=== PATIENT | female | born 1980 | race Caucasian/White ===

== ENCOUNTER 2016-07-22 21:10 | Inpatient (IN) | payer MEDICAID ==
[~2016-07-22] VITALS: Ht 175.3 cm; Wt 83.0 kg
[2016-07-22 21:12] VITALS: BP 153/94; PULSE 103; RESP 20; TEMP 100.3; O2SAT 98
[2016-07-22] MEDS ORDERED: VANCOMYCIN INJ 1,000 MG in SODIUM CHLOR 0.9% 250 ML INJ 250 ML IV STA (22:06)
[2016-07-22] MEDS ORDERED: PIPERACIL-TAZO 4.5 GM PREMIX 100 ML IV STA (22:06)
--- NOTE | 2016-07-22 22:12 | PD ---
HPI Chief Complaint: Skin Problem Time Seen by Provider: 22:06 Travel History International Travel<30 days: No Contact w/Intl Traveler<30days: No Traveled to known affect area: No History of Present Illness HPI 36-year-old female with IV drug use history, presents to the ER today because she states that she had injected heroin and cocaine 2 days ago and had missed, is here because of right arm pain, redness, swelling. She denies any fevers or any other issues. Modifying Factors: None Associated Signs & Symptoms: Right arm pain, swelling, redness Risk Factors: IV drug use PFSH Past Medical History Arthritis: Yes Asthma: No Autoimmune Disease: No Blood Disorders: No Anxiety: Yes Depression: Yes Heart Rhythm Problems: No Cancer: No Cardiovascular Problems: Yes (gestational) High Cholesterol: No Chemotherapy: No Chest Pain: No Congestive Heart Failure: No COPD: Yes (PT NOT SURE) Cerebrovascular Accident: No Diabetes: No Diminished Hearing: No Endocrine: No Gastrointestinal Disorders: Yes Genitourinary: Yes Hypertension: Yes (gestational) Immune Disorder: No Implanted Vascular Access Dvce: No Kidney Stones: Yes (2005) Musculoskeletal: No Neurologic: Yes Psychiatric: Yes (depression, anxiety) Reproductive: No Respiratory: No Immunizations Current: Yes Migraines: Yes Radiation Therapy: No Seizures: No Sleep Apnea: No Thyroid Disease: No ?: Not LMP: 06/29/16 : 5 Para: 5 Miscarriage: 0 : 0 Past Surgical History Abdominal Surgery: No AICD: No Arteriovenous Shunt: No Cardiac Surgery: No Ear Surgery: No Endocrine Surgery: No Eye Surgery: No Genitourinary Surgery: Yes (LITHOTRIPSY) Gynecologic Surgery: Yes (HEMORRAGED AFTER THE 5TH CHILD) Insulin Pump: No Joint Replacement: No Neurologic Surgery: No Oral Surgery: No Pacemaker: No Thoracic Surgery: No Other Surgery: Yes (lithotripsy, LEFT KIDNEY STENT) Social History Alcohol Use: No Tobacco Use: No Substance Use: Yes (DILAUDID, COCAINE, HEROIN, SUBUTEX) Allergies-Medications (Allergen,Severity, Reaction): Coded Allergies: *MDRO Multi-Drug Resistant Organism (Verified Adverse Reaction, Unknown, ) MRSA (finger-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 SKIN: Warm and dry. HEAD: Normocephalic. EYES: No scleral icterus. No injection or drainage. NECK: Supple, trachea midline. CARDIOVASCULAR: Regular rate and rhythm without murmurs, gallops, or rubs. RESPIRATORY: Breath sounds equal bilaterally. No accessory muscle use. GASTROINTESTINAL: Abdomen soft, non-tender, nondistended. MUSCULOSKELETAL: No cyanosis, or edema. BACK: Nontender without obvious deformity. No CVA tenderness. Right arm: There is notable erythema, induration, and tenderness to palpation of the medial right arm at the elbow and antecubital region. She is unable to extend elbow secondary to pain. Data Data Last Documented VS Vital Signs Date Time Temp Pulse Resp B/P Pulse Ox O2 Delivery O2 Flow Rate FiO2 07/22/16 23:03 99.8 103 22 139/73 99 Room Air Orders Complete Blood Count With Diff (07/22/16 22:06) Comprehensive Metabolic Panel (07/22/16 22:06) Lactic Acid Sepsis Protocol (07/22/16 22:06) Urinalysis - C+S If Indicated (07/22/16 22:06) Blood Culture (07/22/16 22:06) Blood Glucose (07/22/16 22:06) Ecg Monitoring (07/22/16 22:06) Iv Access Insert/Monitor (07/22/16 22:06) Oximetry (07/22/16 22:06) Oxygen Administration (07/22/16 22:06) Piperacil-Tazo 4.5 Gm Premix (Zosyn 4.5 (07/22/16 22:06) Vancomycin Inj (Vancomycin Inj) (07/22/16 22:06) Us Arm Soft Tissue (07/22/16 ) Hydromorphone Pf Inj (Dilaudid Pf Inj) (07/22/16 23:30) Ondansetron Inj (Zofran Inj) (07/22/16 23:30) Urine Culture (07/22/16 22:30) Admit Order (Ed Use Only) (07/23/16 00:09) Labs Laboratory Tests Test 07/22/16 07/22/16 07/22/16 22:30 22:35 22:50 Urine Color YELLOW Urine Turbidity HAZY Urine pH 7.5 Urine Specific [place] 1.024 Urine Protein TRACE mg/dL Urine Glucose (UA) NEG mg/dL Urine Ketones NEG mg/dL Urine Occult Blood TRACE Urine Nitrite NEG Urine Bilirubin NEG Urine Urobilinogen 2.0 MG/DL Urine Leukocyte Esterase TRACE Urine RBC 12 /hpf Urine WBC 2 /hpf Urine Squamous Epithelial 28 /hpf Cells Urine Calcium Oxalate Crystals RARE /hpf Urine Bacteria OCC /hpf Urine Mucus MOD /lpf Microscopic Urinalysis Comment CATH-CULTURE IND White Blood Count 10.7 TH/MM3 Red Blood Count 3.96 MIL/MM3 Hemoglobin 12.0 GM/DL Hematocrit 35.7 % Mean Corpuscular Volume 90.1 FL Mean Corpuscular Hemoglobin 30.2 PG Mean Corpuscular Hemoglobin 33.6 % Concent Red Cell Distribution Width 13.0 % Platelet Count 301 TH/MM3 Mean Platelet Volume 8.9 FL Neutrophils (%) (Auto) 72.4 % Lymphocytes (%) (Auto) 19.9 % Monocytes (%) (Auto) 6.2 % Eosinophils (%) (Auto) 0.8 % Basophils (%) (Auto) 0.7 % Neutrophils # (Auto) 7.7 TH/MM3 Lymphocytes # (Auto) 2.1 TH/MM3 Monocytes # (Auto) 0.7 TH/MM3 Eosinophils # (Auto) 0.1 TH/MM3 Basophils # (Auto) 0.1 TH/MM3 CBC Comment DIFF FINAL Differential Comment Sodium Level 142 MEQ/L Potassium Level 3.9 MEQ/L Chloride Level 108 MEQ/L Carbon Dioxide Level 28.3 MEQ/L Anion Gap 6 MEQ/L Blood Urea Nitrogen 7 MG/DL Creatinine 0.98 MG/DL Estimat Glomerular Filtration 64 ML/MIN Rate Random Glucose 115 MG/DL Calcium Level 8.4 MG/DL Total Bilirubin 0.2 MG/DL Aspartate Amino Transf 11 U/L (AST/SGOT) Alanine Aminotransferase 16 U/L (ALT/SGPT) Alkaline Phosphatase 68 U/L Total Protein 7.2 GM/DL Albumin 3.3 GM/DL Lactic Acid Level 1.3 mmol/L MDM Medical Decision Making Medical Screen Exam Complete: Yes Emergency Medical Condition: Yes Medical Record Reviewed: Yes Interpretation(s) Laboratory Tests Test 07/22/16 07/22/16 22:30 22:35 Urine Turbidity HAZY (CLEAR) Urine Occult Blood TRACE (NEG) Urine Leukocyte Esterase TRACE (NEG) Urine RBC 12 /hpf (0-3) Urine Calcium Oxalate Crystals RARE /hpf (NONE) Urine Bacteria OCC /hpf (NONE) Urine Mucus MOD /lpf (OCC) Red Blood Count 3.96 MIL/MM3 (4.00-5.30) Neutrophils (%) (Auto) 72.4 % (16.0-70.0) Chloride Level 108 MEQ/L (98-107) Estimat Glomerular Filtration 64 ML/MIN (>89) Rate Random Glucose 115 MG/DL (74-106) Calcium Level 8.4 MG/DL (8.5-10.1) Aspartate Amino Transf 11 U/L (15-37) (AST/SGOT) Albumin 3.3 GM/DL (3.4-5.0) Last 24 hours Impressions Upper Extremity Ultrasound 07/22/16 0000 Signed Impressions: Service Date/Time: Friday, July 22, 2016 23:08 - CONCLUSION: Phlegmonous changes, likely developing abscess process in the right arm as described Lalo Nina MD Differential Diagnosis Right arm cellulitis/rule out ABSCESS Narrative Course Sepsis protocol initiated, IV antibiotics initiated after blood cultures done. Ultrasound shows underlying abscess. Abscess was drained by my PA without issues. Case was then discussed with PA for [place] hospitalists for admission for IV antibiotics. Diagnosis Primary Impression: Cellulitis Additional Impression: Abscess Admitting Information Admitting Physician Requests: Admit Scripts No Active Prescriptions or Reported Meds Tayo Wyatt MD Jul 22, 2016 22:12
[2016-07-22 22:37] VITALS: RESP 20; O2SAT 100
[2016-07-22 23:03] VITALS: BP 139/73; PULSE 103; RESP 22; TEMP 99.8; O2SAT 99
[2016-07-22 23:22] LABS: AUTOMATED NEUTROPHIL # 7.7 TH/MM3 (1.8-7.7); BASOPHIL # 0.1 TH/MM3 (0-0.2); BASOPHIL % 0.7 % (0.0-2.0); EOSINOPHIL # 0.1 TH/MM3 (0-0.4); EOSINOPHIL % 0.8 % (0.0-4.0); HEMATOCRIT 35.7 % (35.0-46.0); HEMO FLAGS DIFF FINAL; LYMPH % 19.9 % (9.0-44.0); LYMPHOCYTE # 2.1 TH/MM3 (1.0-4.8); MEAN CELL VOLUME 90.1 FL (80.0-100.0); MEAN CORPUSCULAR HEMOGLOBIN 30.2 PG (27.0-34.0); MEAN CORPUSCULAR HGB CONC 33.6 % (32.0-36.0); MONO % 6.2 % (0.0-8.0); NEUT % 72.4 % (16.0-70.0); PLATELET COUNT 301 TH/MM3 (150-450); RED BLOOD COUNT 3.96 MIL/MM3 (4.00-5.30); WHITE BLOOD COUNT 10.7 TH/MM3 (4.0-11.0)
[2016-07-22 23:29] LABS: ANION GAP 6 MEQ/L (5-15); AST (GOT) 11 U/L (15-37); BICARBONATE 28.3 MEQ/L (21.0-32.0); BLOOD UREA NITROGEN 7 MG/DL (7-18); CHLORIDE 108 MEQ/L (98-107); GLOMERULAR FILTRATION RATE 64 ML/MIN (>89); POTASSIUM 3.9 MEQ/L (3.5-5.1); SODIUM (NA) 142 MEQ/L (136-145)
[2016-07-22] MEDS ORDERED: HYDROmorphone HCL PF 2 MG/ML VIAL IV PUSH ONE (23:30)
[2016-07-22] MEDS ORDERED: ONDANSETRON HCL 4 MG/2 ML VIAL IV PUSH ONE (23:30)
[2016-07-22 23:32] LABS: ALKALINE PHOSPHATASE 68 U/L (45-117); ALT (GPT) 16 U/L (10-53); TOTAL BILIRUBIN ADULT 0.2 MG/DL (0.2-1.0)
--- NOTE | 2016-07-22 23:35 | RADRPT ---
EXAM DATE/TIME: 07/22/2016 23:08 [facility] COMPARISON: No previous studies available for comparison. INDICATIONS : Right arm pain, redness, and swelling. MEDICAL HISTORY : Methicillin-resistant Staphylococcus aureus. Hypertension. . Head trauma. Syncope. Migraines . Kidney stones. Arthritis. Liver disease. IV substance abuse. Post traumatic stress disorder. Suicid e attempts. SURGICAL HISTORY : Left kidney lithotripsy with stent. Left arm surgery. Partial finger amputation. ENCOUNTER: Initial ACUITY: 1 day PAIN SCORE: 10/10 LOCATION: Right arm. AREA EVALUATED: Right arm AC area and medial distal humerus just prox to elbow. FINDINGS: There is a slightly greater than 3 cm irregularly shaped hypoechoic process in the upper antecubital region of the right arm in the deep subcutaneous tissues with surrounding soft tissue edema. This is felt to potentially reflect a phlegmon or developing abscess. CONCLUSION: Phlegmonous changes, likely developing abscess process in the right arm as described Lalo Nina MD on July 22, 2016 at 23:30 Board Certified Radiologist. This report was verified electronically.
[2016-07-22 23:40] LABS: BACTERIA, URINE OCC /hpf; BLOOD, URINE TRACE (NEG); CALCIUM OXALATE CRYSTALS,URINE RARE /hpf; GLUCOSE,URINE NEG (NEG); KETONE, URINE NEG (NEG); MUCUS URINE MOD /lpf (OCC); NITRITE,URINE NEG (NEG); PH, URINE 7.5 (5.0-8.5); SQUAMOUS EPITHELIAL CELL URINE 28 /hpf (0-5); URINE COLOR YELLOW (YELLW/STRAW)
[2016-07-22 23:41] LABS: COMMENT (UR) CATH-CULTURE IND; CULTURE IF INDICATED CATH CULTURE IND
[2016-07-23] MEDS ORDERED: diphenhydrAMINE HCL 50 MG/ML VIAL IV PUSH ONE (01:00)
[2016-07-23] MEDS ORDERED: ACETAMINOPHEN 325 MG TAB PO ONE (01:00)
--- NOTE | 2016-07-23 01:11 | PD ---
Physical Exam Date Seen by Provider: Jul 23, 2016 Time Seen by Provider: 01:10 Data Data Last Documented VS Vital Signs Date Time Temp Pulse Resp B/P Pulse Ox O2 Delivery O2 Flow Rate FiO2 07/22/16 23:03 99.8 103 22 139/73 99 Room Air Orders Complete Blood Count With Diff (07/22/16 22:06) Comprehensive Metabolic Panel (07/22/16 22:06) Lactic Acid Sepsis Protocol (07/22/16 22:06) Urinalysis - C+S If Indicated (07/22/16 22:06) Blood Culture (07/22/16 22:06) Blood Glucose (07/22/16 22:06) Ecg Monitoring (07/22/16 22:06) Iv Access Insert/Monitor (07/22/16 22:06) Oximetry (07/22/16 22:06) Oxygen Administration (07/22/16 22:06) Piperacil-Tazo 4.5 Gm Premix (Zosyn 4.5 (07/22/16 22:06) Vancomycin Inj (Vancomycin Inj) (07/22/16 22:06) Us Arm Soft Tissue (07/22/16 ) Hydromorphone Pf Inj (Dilaudid Pf Inj) (07/22/16 23:30) Ondansetron Inj (Zofran Inj) (07/22/16 23:30) Urine Culture (07/22/16 22:30) Admit Order (Ed Use Only) (07/23/16 00:09) Labs Laboratory Tests Test 07/22/16 07/22/16 07/22/16 22:30 22:35 22:50 Urine Color YELLOW Urine Turbidity HAZY Urine pH 7.5 Urine Specific [place] 1.024 Urine Protein TRACE mg/dL Urine Glucose (UA) NEG mg/dL Urine Ketones NEG mg/dL Urine Occult Blood TRACE Urine Nitrite NEG Urine Bilirubin NEG Urine Urobilinogen 2.0 MG/DL Urine Leukocyte Esterase TRACE Urine RBC 12 /hpf Urine WBC 2 /hpf Urine Squamous Epithelial 28 /hpf Cells Urine Calcium Oxalate Crystals RARE /hpf Urine Bacteria OCC /hpf Urine Mucus MOD /lpf Microscopic Urinalysis Comment CATH-CULTURE IND White Blood Count 10.7 TH/MM3 Red Blood Count 3.96 MIL/MM3 Hemoglobin 12.0 GM/DL Hematocrit 35.7 % Mean Corpuscular Volume 90.1 FL Mean Corpuscular Hemoglobin 30.2 PG Mean Corpuscular Hemoglobin 33.6 % Concent Red Cell Distribution Width 13.0 % Platelet Count 301 TH/MM3 Mean Platelet Volume 8.9 FL Neutrophils (%) (Auto) 72.4 % Lymphocytes (%) (Auto) 19.9 % Monocytes (%) (Auto) 6.2 % Eosinophils (%) (Auto) 0.8 % Basophils (%) (Auto) 0.7 % Neutrophils # (Auto) 7.7 TH/MM3 Lymphocytes # (Auto) 2.1 TH/MM3 Monocytes # (Auto) 0.7 TH/MM3 Eosinophils # (Auto) 0.1 TH/MM3 Basophils # (Auto) 0.1 TH/MM3 CBC Comment DIFF FINAL Differential Comment Sodium Level 142 MEQ/L Potassium Level 3.9 MEQ/L Chloride Level 108 MEQ/L Carbon Dioxide Level 28.3 MEQ/L Anion Gap 6 MEQ/L Blood Urea Nitrogen 7 MG/DL Creatinine 0.98 MG/DL Estimat Glomerular Filtration 64 ML/MIN Rate Random Glucose 115 MG/DL Calcium Level 8.4 MG/DL Total Bilirubin 0.2 MG/DL Aspartate Amino Transf 11 U/L (AST/SGOT) Alanine Aminotransferase 16 U/L (ALT/SGPT) Alkaline Phosphatase 68 U/L Total Protein 7.2 GM/DL Albumin 3.3 GM/DL Lactic Acid Level 1.3 mmol/L MDM Medical Record Reviewed: Yes Supervised Visit with [place]: Yes Interpretation(s) Ultrasound of the right antecubital fossa reveals a loculated area of abscess with cellulitic component with cobblestoning. Differential Diagnosis MDM: High Differential diagnoses: Abscess, folliculitis, cellulitis, lymphangitis, abrasion, contact dermatitis Narrative Course An incision and drainage has been performed Procedures Procedure Narrative I&D abscess: After the risks and benefits were discussed the following procedure was performed. The skin is prepped and draped in the usual sterile fashion using Betadine. The abscess is anesthetized with 1% lidocaine. After adequate anesthesia, an 11 blade scalpel is used to make a 3 centimeter central incision. Perulant material is expressed and cultured. Loculations are broken up using curved Chelsy forceps. The wound is cleansed deeply using dilute Betadine and peroxide on Q-tips. The wound is packed open using iodoform gauze. A clean dressing is applied. The patient tolerated the procedure well. There was no complications. Follow-up instructions were given to the patient. Diagnosis Primary Impression: Cellulitis Scripts No Active Prescriptions or Reported Meds Karl Zelaya Jul 23, 2016 01:11
[2016-07-23] MEDS ORDERED: SODIUM CHLORIDE 0.9% FLUSH 5 ML FLUSH FLUSH PRN (01:30)
[2016-07-23] MEDS ORDERED: NALOXONE HCL 0.4 MG/ML AMP IV PRN (01:30)
[2016-07-23] MEDS ORDERED: ZOLPIDEM TARTRATE 5 MG TAB PO PRN (01:30)
[2016-07-23] MEDS ORDERED: ACETAMINOPHEN 325 MG TAB PO PRN (01:30)
[2016-07-23] MEDS ORDERED: ONDANSETRON HCL 4 MG/2 ML VIAL IVP PRN (01:30)
[2016-07-23] MEDS ORDERED: SENNOSIDES 8.6 MG TAB PO PRN (01:30)
[2016-07-23 02:00] VITALS: BP 126/62; PULSE 92; RESP 16; TEMP 100.8; O2SAT 99
[2016-07-23] MEDS: SODIUM CHLOR 0.9% 1000 ML INJ 1,000 ML IV SCH ×2 (02:09→18:12)
[2016-07-23] MEDS: LINEZOLID 600 MG PREMIX 300 ML IV SCH ×2 (02:49→14:51)
[2016-07-23 03:02] LABS: BETA HCG QUANT LESS THAN 1 MIU/ML (0-5)
[2016-07-23 03:24] VITALS: BP 126/62; TEMP 100.4
[2016-07-23 03:44] VITALS: BP 108/57; PULSE 97; RESP 20; TEMP 98; O2SAT 97
[2016-07-23] MEDS: oxyCODONE/ACETAMINOPHEN 10 MG/325 MG TAB PO PRN ×2 (03:55→20:32)
[2016-07-23] MEDS: PIPERACIL-TAZO 4.5 GM PREMIX 100 ML IV SCH ×4 (03:55→21:24)
[2016-07-23 08:00] VITALS: BP_SYST 105; BP_SYST 97; BP_DIAS 53; BP_DIAS 67; PULSE 71; PULSE 81; RESP 20; TEMP 96.2; TEMP 97.2; O2SAT 95; O2SAT 97
[2016-07-23] MEDS: KETOROLAC TROMETHAMINE 30 MG/ML (IVP) VIAL IVP PRN ×3 (08:02→19:20)
[2016-07-23] MEDS: HEPARIN SODIUM - SQ 10,000 UNITS/ML VIAL SQ SCH ×2 (08:02→19:21)
[2016-07-23] MEDS: SODIUM CHLORIDE 0.9% FLUSH 5 ML FLUSH FLUSH SCH ×2 (08:03→21:00)
--- NOTE | 2016-07-23 08:25 | HHI.HP ---
HPI Service [facility]ists Primary Care Physician Joshua Robles M.D. Admission Diagnosis left arm cellulitis/abscess Diagnoses: Chief Complaint: RIGHT ARM PAIN (Tita Verma) Travel History International Travel<30 Days: No Contact w/Intl Traveler <30 Da: No Traveled to Known Affected Are: No (Tita Verma) History of Present Illness The patient is a 36 year old female with a history of opioid IVDU, MRSA infection with previous I/D of left AC abscess 2015, bipolar, COPD, anxiety. Most recently she underwent DIP joint amputation for osteomyelitis and MRSA infection. Pt. presented with right antecubital and arm, swelling and redness. States she injected cocaine and heroin 2 days ago. She had subjective fever, chills, no cp, no sob, no cough, no sputum, no urinary symptoms, no diarrhea. Pt. was noted febrile 100.3, tachycardic HR 103, BP 153/94, RR 20. WBC was normal. Lactic acid 1.3. US of left arm showed developing abscess. Last Impressions Upper Extremity Ultrasound 07/22/16 0000 Signed Impressions: Service Date/Time: Friday, July 22, 2016 23:08 - CONCLUSION: Phlegmonous changes, likely developing abscess process in the right arm as described Lalo Nina MD In the ED, she was given IVF, cultures were obtained and antibiotics were initiated. Bedside I/D was done in the ED, cultures were obtained. UA also positive for UTI. Pt. now admitted for further evaluation and treatment. (Tita Verma) Review of Systems Constitutional: COMPLAINS OF: Fever, Chills, DENIES: Diaphoretic episodes, Fatigue, Weight gain, Weight loss, Dizziness, Change in appetite, Night Sweats Endocrine: DENIES: Abnorml menstrual pattern, Heat/cold intolerance, Polydipsia , Polyuria, Polyphagia Eyes: DENIES: Blurred vision, Diplopia, Eye inflammation, Eye pain, Vision loss , Photosensitivity, Double Vision Ears, nose, mouth, throat: DENIES: Tinnitus, Hearing loss, Vertigo, Nasal discharge, Oral lesions, Throat pain, Hoarseness, Ear Pain, Running Nose, Epistaxis, Sinus Pain, Toothache, Odynophagia Respiratory: DENIES: Apneas, Cough, Snoring, Wheezing, Hemoptysis, Sputum production, Shortness of breath Cardiovascular: DENIES: Chest pain, Palpitations, Syncope, Dyspnea on Exertion , PND, Lower Extremity Edema, Orthopnea, Claudication Gastrointestinal: DENIES: Abdominal pain, Black stools, Bloody stools, Constipation, Diarrhea, Nausea, Vomiting, Difficulty Swallowing, Anorexia Genitourinary: DENIES: Abnormal vaginal bleeding, Dysmenorrhea, Dyspareunia, Sexual dysfunction, Urinary frequency, Urinary incontinence, Urgency, Hematuria , Dysuria, Nocturia, Vaginal discharge Musculoskeletal: COMPLAINS OF: Back pain, DENIES: Joint pain, Muscle aches, Stiffness, Joint Swelling, Neck pain Integumentary: COMPLAINS OF: Rash (right arm pain, swelling), DENIES: Abnormal pigmentation, Pruritus, Nail changes, Breast masses, Breast skin changes, Nipple discharge Hematologic/lymphatic: DENIES: Bruising, Lymphadenopathy Immunologic/allergic: DENIES: Eczema, Urticaria Neurologic: DENIES: Abnormal gait, Headache, Localized weakness, Paresthesias, Seizures, Speech Problems, Tremor, Poor Balance Psychiatric: DENIES: Anxiety, Confusion, Mood changes, Depression, Hallucinations, Agitation, Suicidal Ideation, Homicidal Ideation, Delusions ( Tita Verma) Past Family Social History Past Medical History COPDfrom secondhand smoke History of renal stones Anxiety Bipolar disease IV drug use DVT left arm Admitted 2015, left FA abscess, Past Surgical History Lithotripsy Left rotator cuff surgery I/D left AC abscess 2015 S/P amputation of the left third index phalanx 05/10 Reported Medications Reported Meds & Active Scripts Active No Active Prescriptions or Reported Medications (Tita Verma) Allergies: Coded Allergies: *MDRO Multi-Drug Resistant Organism (Verified Adverse Reaction, Unknown, ) MRSA (finger-04/23/16 & 05/10/16) Vancomycin (Verified Adverse Reaction, Unknown, Itching, 07/23/16) AND REDNESS Active Ordered Medications Inpatient Medications Acetaminophen (Tylenol) 650 mg Q4H PRN PO TEMP > 100.4; Start 07/23/16 at 01:30 Acetaminophen 325 mg 325 mg ONCE ONCE PO Last administered on 07/23/16t 02:08 ; Start 07/23/16 at 01:00; Stop 07/23/16 at 01:01; Status DC Diphenhydramine HCl (Benadryl Inj) 25 mg ONCE ONCE IV PUSH Last administered on 07/23/16 02:08; Start 07/23/16 at 01:00; Stop 07/23/16 at 01:01; Status DC Heparin Sodium (Porcine) (Heparin Inj) 5,000 units Q12H SQ Last administered on 07/23/16 08:02; Start 07/23/16 at 09:00 Hydromorphone HCl (Dilaudid Pf Inj) 1 mg Q3H PRN IV BREAKTHROUGH PAIN; Start at 01:30 IV Flush (NS Flush) 2 ml BID FLUSH Last administered on 07/23/16 08:03; Start 07/23/16 at 09:00 Ketorolac Tromethamine (Toradol Inj) 30 mg Q6H PRN IVP Pain 6-10;if unable to take PO Last administered on 07/23/16 08:02; Start 07/23/16 at 01:30; Stop at 01:29 Linezolid (Zyvox 600 Mg Premix) 300 ml @ 300 mls/hr Q12H IV Last administered on 07/23/16 02:49; Start 07/23/16 at 02:00 Naloxone HCl 0.4 mg 0.4 mg UNSCH PRN IV SEE LABEL COMMENTS; Start 07/23/16 at 01:30 Ondansetron HCl (Zofran Inj) 4 mg Q6H PRN IVP NAUSEA OR VOMITING; Start at 01:30 Oxycodone HCl (Roxicodone) 5 mg Q4H PRN PO PAIN SCALE 3 TO 5; Start 07/23/16 at 01:30 Oxycodone/ Acetaminophen (Percocet 10-325 Mg) 1 tab Q6H PRN PO PAIN SCALE 6 TO 10 Last administered on 07/23/16 03:55; Start 07/23/16 at 01:30 Piperacillin Sod/ Tazobactam Sod 100 ml @ 200 mls/hr Q6H IV Last administered on 07/23/16 08:03; Start 07/23/16 at 04:00 Sennosides (Senokot) 17.2 mg Q12H PRN PO CONSTIPATION; Start 07/23/16 at 01:30 Sodium Chloride (NS 1000 ml Inj) 1,000 ml @ 70 mls/hr [id number] IV Last administered on 07/23/16 02:09; Start 07/23/16 at 02:00 Vancomycin HCl/ Sodium Chloride (Vancomycin Inj/ NS 250 ml Inj) 250 ml @ 250 mls/hr ONCE STAT IV Last administered on 07/22/16 23:18; Start 07/22/16 at 22 :06; Stop 07/22/16 at 23:05; Status DC Zolpidem Tartrate (Ambien) 5 mg HS PRN PO INSOMNIA; Start 07/23/16 at 01:30 Family History Mother, alive and well, hx nephritis Father, alive and well, hx CO, CAD Social History Lives with 90 year grandmother, has 3 children, doesn't work. No smoking, no ETOH, admits to shooting Cocaine 2 days ago, also shoots Dilaudid (Tita Verma) Physical Exam Vital Signs Vital Signs Date Time Temp Pulse Resp B/P Pulse Ox O2 Delivery O2 Flow Rate FiO2 07/23/16 03:44 98.0 97 20 108/57 97 07/23/16 03:24 100.4 84 16 126/62 97 07/23/16 02:00 100.8 92 16 126/62 99 Room Air 07/22/16 23:03 99.8 103 22 139/73 99 Room Air 07/22/16 22:37 20 100 Room Air 07/22/16 22:37 100 Room Air 07/22/16 22:32 103 22 07/22/16 21:12 100.3 103 20 153/94 98 Room Air Physical Exam GENERAL: This is a well-nourished, well-developed patient, in no apparent distress. SKIN: Skin pale, no rashes, ecchymoses or lesions. Cool and dry. HEAD: Atraumatic. Normocephalic. No temporal or scalp tenderness. EYES: Pupils equal round and reactive. Extraocular motions intact. No scleral icterus. No injection or drainage. ENT: Nose without bleeding, purulent drainage or septal hematoma. Throat without erythema, tonsillar hypertrophy or exudate. Uvula midline. Airway patent. NECK: Trachea midline. No JVD or lymphadenopathy. Supple, nontender, no meningeal signs. CARDIOVASCULAR: Regular rate and rhythm without murmurs, gallops, or rubs. RESPIRATORY: Clear to auscultation. Breath sounds equal bilaterally. No wheezes , rales, or rhonchi. GASTROINTESTINAL: Abdomen soft, non-tender, nondistended. No hepato-splenomegaly , or palpable masses. No guarding. MUSCULOSKELETAL: Right arm with swelling, dressing to AC, palpable pulse, c/o tenderness to entire arm. Other extremities without clubbing, cyanosis, or edema. No joint tenderness, effusion, or edema noted. No calf tenderness. Negative Homans sign bilaterally. Left index finger tip amputated, site healing well. NEUROLOGICAL: Awake and alert. Cranial nerves II through XII intact. Motor and sensory grossly within normal limits. Five out of 5 muscle strength in all muscle groups. Normal speech. Laboratory Laboratory Tests Test 07/22/16 07/22/16 07/22/16 22:30 22:35 22:50 Urine Color YELLOW Urine Turbidity HAZY Urine pH 7.5 Urine Specific [place] 1.024 Urine Protein TRACE Urine Glucose (UA) NEG Urine Ketones NEG Urine Occult Blood TRACE Urine Nitrite NEG Urine Bilirubin NEG Urine Urobilinogen 2.0 Urine Leukocyte Esterase TRACE Urine RBC 12 Urine WBC 2 Urine Squamous Epithelial 28 Cells Urine Calcium Oxalate Crystals RARE Urine Bacteria OCC Urine Mucus MOD Microscopic Urinalysis Comment CATH-CULTURE IND White Blood Count 10.7 Red Blood Count 3.96 Hemoglobin 12.0 Hematocrit 35.7 Mean Corpuscular Volume 90.1 Mean Corpuscular Hemoglobin 30.2 Mean Corpuscular Hemoglobin 33.6 Concent Red Cell Distribution Width 13.0 Platelet Count 301 Mean Platelet Volume 8.9 Neutrophils (%) (Auto) 72.4 Lymphocytes (%) (Auto) 19.9 Monocytes (%) (Auto) 6.2 Eosinophils (%) (Auto) 0.8 Basophils (%) (Auto) 0.7 Neutrophils # (Auto) 7.7 Lymphocytes # (Auto) 2.1 Monocytes # (Auto) 0.7 Eosinophils # (Auto) 0.1 Basophils # (Auto) 0.1 CBC Comment DIFF FINAL Differential Comment Sodium Level 142 Potassium Level 3.9 Chloride Level 108 Carbon Dioxide Level 28.3 Anion Gap 6 Blood Urea Nitrogen 7 Creatinine 0.98 Estimat Glomerular Filtration 64 Rate Random Glucose 115 Calcium Level 8.4 Total Bilirubin 0.2 Aspartate Amino Transf 11 (AST/SGOT) Alanine Aminotransferase 16 (ALT/SGPT) Alkaline Phosphatase 68 Total Protein 7.2 Albumin 3.3 Human Chorionic Gonadotropin, LESS THAN 1 Quant Lactic Acid Level 1.3 Date/Time Procedure Status Source Growth 07/23/16 01:00 Gram Stain Received Wound Arm Pending 07/23/16 01:00 Wound Culture Received Wound Arm Pending 07/22/16 22:50 Aerobic Blood Culture Received Blood Peripheral Pending 07/22/16 22:50 Anaerobic Blood Culture Received Blood Peripheral Pending 07/22/16 22:30 Urine Culture Received Urine Catheterized Urine Pending (Tita Verma) Result Diagram: 07/22/16223407/22/162234 Imaging Last Impressions Upper Extremity Ultrasound 07/22/16 0000 Signed Impressions: Service Date/Time: Friday, July 22, 2016 23:08 - CONCLUSION: Phlegmonous changes, likely developing abscess process in the right arm as described Lalo Nina MD (Tita Verma) Septic Shock Reassessment Heart: Regular rate and rhythm Lungs: Clear Skin: Warm Peripheral Pulses: Bounding Right Radial Bounding Left Radial Bounding Right Popliteal Bounding Left Popliteal Bounding Right Dorsalis Pedis Bounding Left Dorsalis Pedis Bounding Right Posterior Tibial Bounding Left Posterior Tibial Capillary Refill: Brisk (Tita Verma) Assessment and Plan Problem List: (1) early sepsis (2) Abscess of right arm (3) Cellulitis (4) IV drug abuse (5) Substance use disorder (6) Hx MRSA infection (7) Hx of osteomyelitis Assessment and Plan Admit to Dr. Lux Early sepsis, right AC abscess with cellulitis, hx MRSA infections left arm, and most recently left index fingertip with amputation, IVDU. Recently injected cocaine and heroine. Found with tachycardia, fever, early sepsis. -Continue antibiotics -Follow cultures -ID consult for antibiotic management -Neurovascular checks -Monitor CBC -Continue with IVF -Continue Percocet for pain management IVDU, recent relapse -Patient has been counseled, encouraged to seek rehabilitation. UTI -Continue antibiotics, follow cultures History of bipolar, anxiety, patient not on any medication -Monitor, appears stable Heparin for DVT prophylaxis Plan of care has been discussed with the patient, attending and registered nurse. Further management of the patient will be dependent on the hospital course This patient was seen by myself in Dr. Lux. This H&P is written on his behalf (Tita Verma) Assessment and Plan Patient seen and examined as above chart reviewed Labs and radiologic data reviewed Medications reviewed Plan of care discussed with LIBRARY PARAPROFESSIONAL Discussed with patient Discussed with RN (Alan Lux MD) Physician Certification 2 Midnight Certification Type: Admission for Inpatient Services Order for Inpatient Services The services are ordered in accordance with Medicare regulations or non- Medicare payer requirements, as applicable. In the case of services not specified as inpatient-only, they are appropriately provided as inpatient services in accordance with the 2-midnight benchmark. Estimated LOS (days): 2 2 days is the estimated time the patient will need to remain in the hospital, assuming treatment plan goals are met and no additional complications. Post-Hospital Plan: Home Health (Tita Verma) Problem Qualifiers (1) Cellulitis: Qualified Code: L03.113 - Cellulitis of right upper extremity Tita Verma Jul 23, 2016 08:25 Alan Lux MD Jul 23, 2016 16:39
[2016-07-23 16:00] VITALS: BP 105/68; PULSE 79; RESP 20; TEMP 96.8; O2SAT 90
--- NOTE | 2016-07-23 16:40 | PD.CONS ---
History of Present Illness Service Infectious disease Consult Requested By Dr Lux Reason for Consult Evaluate patient with right arm abscess, known IV drug use, history of MRSA Primary Care Physician Joshua Robles M.D. Diagnoses: History of Present Illness Patient seen and examined. Records reviewed. Patient is a 36-year-old female with known IV drug use, or scented to the hospital with 2 day history of pain, redness and swelling on her right antecubital fossa. She last injected about 3 days ago in her right antecubital fossa. The day after she injected she noticed pain and swelling and redness which progressively worsened. She not have any fever or chills that she knows off at home, but since she's been admitted she's been febrile. She denies any respiratory complaints, GI or any urinary complaint. Had previous admission with infected IV sites. In May she had an infection in her hand with MRSA. Her WBC is normal. Blood cultures are negative so far. An ultrasound in her right arm showed phlegmonous changes and possibly developing an early abscess. She is currently on Zosyn and Zyvox. Infectious disease consultation requested to evaluate the patient. Review of Systems Constitutional: COMPLAINS OF: Fever, Chills, Night Sweats Eyes: DENIES: Eye pain Ears, nose, mouth, throat: DENIES: Nasal discharge, Oral lesions, Throat pain, Hoarseness, Toothache Respiratory: DENIES: Cough, Shortness of breath Cardiovascular: DENIES: Chest pain, Palpitations, Syncope Gastrointestinal: DENIES: Abdominal pain, Diarrhea, Nausea, Vomiting Genitourinary: DENIES: Urinary frequency, Urgency, Hematuria Musculoskeletal: COMPLAINS OF: Muscle aches, DENIES: Joint pain Integumentary: DENIES: Rash Neurologic: DENIES: Headache Psychiatric: COMPLAINS OF: Anxiety Past Family Social History Allergies: Coded Allergies: *MDRO Multi-Drug Resistant Organism (Verified Adverse Reaction, Unknown, ) MRSA (finger-04/23/16 & 05/10/16) Vancomycin (Verified Adverse Reaction, Unknown, Itching, 07/23/16) AND REDNESS Past Medical History COPD Bipolar disorder Infection of the left finger with MRSA Previous abscess in her left upper extremity, had drainage DVT left upper extremity History of kidney stones Past Surgical History Left rotator cuff surgery Previous drainage of an abscess Recent surgery on her left index finger for MRSA infection Active Ordered Medications Tylenol Heparin Dilaudid Portable Zyvox Zofran Oxycodone Percocet Zosyn Richard Mcrae Social History No smoking Alcohol abuse Uses IV drugs, IV Dilaudid Physical Exam Vital Signs Vital Signs Date Time Temp Pulse Resp B/P Pulse Ox O2 Delivery O2 Flow Rate FiO2 07/23/16 08:00 97.2 81 20 105/67 95 07/23/16 08:00 96.2 71 20 97/53 97 07/23/16 03:44 98.0 97 20 108/57 97 07/23/16 03:24 100.4 84 16 126/62 97 07/23/16 02:00 100.8 92 16 126/62 99 Room Air 07/22/16 23:03 99.8 103 22 139/73 99 Room Air 07/22/16 22:37 20 100 Room Air 07/22/16 22:37 100 Room Air 07/22/16 22:32 103 22 07/22/16 21:12 100.3 103 20 153/94 98 Room Air Physical Exam GENERAL: This is a well-nourished, well-developed female, awake and alert, in no apparent distress. SKIN: Warm and moist, no generalized rash or ecchymosis. No evidence of embolic lesions. HEAD: Atraumatic. Normocephalic. No temporal or scalp tenderness. EYES: Conjunctivae, no petechia or hemorrhage. Pupils equal round and reactive. Extraocular movements full and intact. No scleral icterus. No injection or drainage. ENT: Nose without bleeding, or purulent drainage. Moist oral mucosa. Throat without erythema, or exudate. Uvula midline. Airway patent. NECK: Trachea midline. No JVD or lymphadenopathy. Supple, nontender, no meningeal signs. CARDIOVASCULAR: Regular rate and rhythm without murmurs, gallops, or rubs. RESPIRATORY: Clear to auscultation. Breath sounds equal bilaterally. No wheezes , rales, or rhonchi. GASTROINTESTINAL: Abdomen soft, non-tender, nondistended. Bowel sounds are present and normoactive. No organomegaly. No guarding. MUSCULOSKELETAL: Extremities without clubbing, cyanosis, or edema. No joint tenderness, effusion, or edema noted. No calf tenderness. In the RUE - in the antecubital fossa, there is a small incision with packing and has bloody drainage. This is surrounded by erythema and some induration, tender on palpation. R elbow looks ok, with no fluid noted in the joint. there redness extends proximally to her upper arm. (+) warmth NEUROLOGICAL: Awake and alert. Cranial nerves II through XII intact. Motor and sensory grossly within normal limits. Five out of 5 muscle strength in all muscle groups. Normal speech. PSYCH: Calm and cooperative LINE: PIV with no evidence of infection Laboratory Laboratory Tests Test 07/22/16 07/22/16 07/22/16 22:30 22:35 22:50 Urine Color YELLOW Urine Turbidity HAZY Urine pH 7.5 Urine Specific [place] 1.024 Urine Protein TRACE Urine Glucose (UA) NEG Urine Ketones NEG Urine Occult Blood TRACE Urine Nitrite NEG Urine Bilirubin NEG Urine Urobilinogen 2.0 Urine Leukocyte Esterase TRACE Urine RBC 12 Urine WBC 2 Urine Squamous Epithelial 28 Cells Urine Calcium Oxalate Crystals RARE Urine Bacteria OCC Urine Mucus MOD Microscopic Urinalysis Comment CATH-CULTURE IND White Blood Count 10.7 Red Blood Count 3.96 Hemoglobin 12.0 Hematocrit 35.7 Mean Corpuscular Volume 90.1 Mean Corpuscular Hemoglobin 30.2 Mean Corpuscular Hemoglobin 33.6 Concent Red Cell Distribution Width 13.0 Platelet Count 301 Mean Platelet Volume 8.9 Neutrophils (%) (Auto) 72.4 Lymphocytes (%) (Auto) 19.9 Monocytes (%) (Auto) 6.2 Eosinophils (%) (Auto) 0.8 Basophils (%) (Auto) 0.7 Neutrophils # (Auto) 7.7 Lymphocytes # (Auto) 2.1 Monocytes # (Auto) 0.7 Eosinophils # (Auto) 0.1 Basophils # (Auto) 0.1 CBC Comment DIFF FINAL Differential Comment Sodium Level 142 Potassium Level 3.9 Chloride Level 108 Carbon Dioxide Level 28.3 Anion Gap 6 Blood Urea Nitrogen 7 Creatinine 0.98 Estimat Glomerular Filtration 64 Rate Random Glucose 115 Calcium Level 8.4 Total Bilirubin 0.2 Aspartate Amino Transf 11 (AST/SGOT) Alanine Aminotransferase 16 (ALT/SGPT) Alkaline Phosphatase 68 Total Protein 7.2 Albumin 3.3 Human Chorionic Gonadotropin, LESS THAN 1 Quant Lactic Acid Level 1.3 Date/Time Procedure Status Source Growth 07/23/16 01:00 Gram Stain - Final Resulted Wound Arm 07/23/16 01:00 Wound Culture Resulted Wound Arm Pending 07/22/16 22:50 Aerobic Blood Culture - Preliminary Resulted Blood Peripheral NO GROWTH IN 1 DAY 07/22/16 22:50 Anaerobic Blood Culture - Preliminary Resulted Blood Peripheral NO GROWTH IN 1 DAY 07/22/16 22:30 Urine Culture - Preliminary Resulted Urine Catheterized Urine RESULTS PENDING Result Diagram: 07/22/16 2235 07/22/16 2235 Imaging RADIOLOGY STUDIES/FILMS REVIEWED Upper Extremity Ultrasound 07/22/16 0000 Signed Impressions: Service Date/Time: Friday, July 22, 2016 23:08 - CONCLUSION: Phlegmonous changes, likely developing abscess process in the right arm as described Lalo Nina MD Assessment and Plan Assessment and Plan IMPRESSION Sepsis on admission due to infected IVDU site Cellulitis, abscess LUE from due to IVDU RECOMMENDATION Continue Zosyn Continue Zyvox Follow C/S and adjust Abx Monitor temps Monitor progress I will follow along with you Thank you for this consultation Audra Nettles MD Jul 23, 2016 16:40
[2016-07-23 18:55] VITALS: BP 126/68; PULSE 90; RESP 18; TEMP 97.9; O2SAT 98
[2016-07-24] VITALS (11 sets, daily range): BP systolic 100–131; BP diastolic 57–86; PULSE 68–78; RESP 16–20; TEMP 96.3–98.4; O2SAT 96–100
[2016-07-24] MEDS: KETOROLAC TROMETHAMINE 30 MG/ML (IVP) VIAL IVP PRN ×3 (01:54→14:38)
[2016-07-24] MEDS: LINEZOLID 600 MG PREMIX 300 ML IV SCH ×2 (01:54→14:37)
[2016-07-24] MEDS: oxyCODONE/ACETAMINOPHEN 10 MG/325 MG TAB PO PRN ×2 (03:35→09:47)
[2016-07-24] MEDS: PIPERACIL-TAZO 4.5 GM PREMIX 100 ML IV SCH ×4 (04:00→21:43)
--- NOTE | 2016-07-24 08:13 | HHI.PR ---
Subjective Remarks increase right arm pain no fever overnight no cp no sob wants something stronger for pain no diarrhea no abd. pain Objective Objective Results - Vital Signs Date Time Temp Pulse Resp B/P Pulse Ox O2 Delivery O2 Flow Rate FiO2 07/24/16 06:48 16 07/24/16 04:57 97.7 68 20 131/69 99 07/24/16 04:46 16 07/24/16 03:00 16 07/24/16 00:17 97.6 74 20 102/61 96 07/23/16 18:55 97.9 90 18 126/68 98 07/23/16 16:00 96.8 79 20 105/68 90 I/O 07/23/16 07/23/16 07/23/16 07/24/16 07/24/16 07/24/16 07:00 15:00 23:00 07:00 15:00 23:00 Intake Total 1548 ml 480 ml Balance 1548 ml 480 ml Intake Oral 120 ml 480 ml IV Total 1428 ml # Voids 3 1 2 # Bowel Movements 1 Result Diagram: 07/22/165 07/22/16 2235 Imaging Last Impressions Upper Extremity Ultrasound 07/22/16 0000 Signed Impressions: Service Date/Time: Friday, July 22, 2016 23:08 - CONCLUSION: Phlegmonous changes, likely developing abscess process in the right arm as described Lalo Nina MD Other Results Date/Time Procedure Status Source Growth 07/23/16 01:00 Gram Stain - Final Resulted Wound Arm 07/23/16 01:00 Wound Culture Resulted Wound Arm Pending 07/22/16 22:50 Aerobic Blood Culture - Preliminary Resulted Blood Peripheral NO GROWTH IN 1 DAY 07/22/16 22:50 Anaerobic Blood Culture - Preliminary Resulted Blood Peripheral NO GROWTH IN 1 DAY 07/22/16 22:30 Urine Culture - Preliminary Resulted Urine Catheterized Urine RESULTS PENDING ROS General: No: Fatigue, Weakness HEENT: No: Sore Throat, Dysphagia Cardiac: No: Chest Pain, Edema, Palpitations Pulmonary: No: Cough, SOB, Wheezing GI: No: Abdominal Pain, BM, Diarrhea, N/V /[employer] WORKER: No: Dysuria, Urgency Neuro/MS: Other (right arm pain ) Psych: No: Anxiety, Depression Skin: No: Itching, Rash Physical Exam Physical Exam GENERAL: This is a well-nourished, well-developed patient, in no apparent distress. SKIN: Skin pale, no rashes, ecchymoses or lesions. Cool and dry. HEAD: Atraumatic. Normocephalic. No temporal or scalp tenderness. EYES: Pupils equal round and reactive. Extraocular motions intact. No scleral icterus. No injection or drainage. ENT: Nose without bleeding, purulent drainage or septal hematoma. Throat without erythema, tonsillar hypertrophy or exudate. Uvula midline. Airway patent. NECK: Trachea midline. No JVD or lymphadenopathy. Supple, nontender, no meningeal signs. CARDIOVASCULAR: Regular rate and rhythm without murmurs, gallops, or rubs. RESPIRATORY: Clear to auscultation. Breath sounds equal bilaterally. No wheezes , rales, or rhonchi. GASTROINTESTINAL: Abdomen soft, non-tender, nondistended. No hepato-splenomegaly , or palpable masses. No guarding. MUSCULOSKELETAL: Right arm with swelling, dressing to AC, palpable pulse, c/o tenderness to entire arm. Erythema noted to upper arm. Other extremities without clubbing, cyanosis, or edema. No joint tenderness, effusion, or edema noted. No calf tenderness. Negative Homans sign bilaterally. Left index finger tip amputated, site healing well. NEUROLOGICAL: Awake and alert. Cranial nerves II through XII intact. Motor and sensory grossly within normal limits. Five out of 5 muscle strength in all muscle groups. Normal speech. Urinary Catheter: No Vascular Central Line Catheter: No A/P Diagnosis: (1) early sepsis (2) Abscess of right arm (3) Cellulitis (4) IV drug abuse (5) Substance use disorder (6) Hx MRSA infection (7) Hx of osteomyelitis Assessment and Plan Early sepsis, right AC abscess with cellulitis, hx MRSA infections left arm, and most recently left index fingertip with amputation, IVDU. Recently injected cocaine and heroine. Found with tachycardia, fever, early sepsis. Right arm more tender, inc. erythema. -Continue antibiotics -Follow cultures -ID input appreciated -Neurovascular checks -Continue with IVF -Continue Percocet for pain management -consult hand surgeon, Dr. Sharp, pt. has seen pt. in the past. IVDU, recent relapse -Patient has been counseled, encouraged to seek rehabilitation. UTI -Continue antibiotics, follow cultures History of bipolar, anxiety, patient not on any medication -Monitor, appears stable Heparin for DVT prophylaxis continue with present tx D/W RN D/W Dr. Whittington D/W pt. This patient was seen by myself in Dr. Lux. This note is written on his behalf Problem Qualifiers (1) Cellulitis: Qualified Code: L03.113 - Cellulitis of right upper extremity Tita Verma Jul 24, 2016 08:13
[2016-07-24] MEDS: HEPARIN SODIUM - SQ 10,000 UNITS/ML VIAL SQ SCH (09:00)
[2016-07-24] MEDS: SODIUM CHLORIDE 0.9% FLUSH 5 ML FLUSH FLUSH SCH ×2 (09:46→21:00)
[2016-07-24] MEDS: SODIUM CHLOR 0.9% 1000 ML INJ 1,000 ML IV SCH ×2 (09:48→21:15)
[2016-07-24] MEDS ORDERED: PROPOFOL 200 MG/20 ML AMP IV ONE (12:00)
[2016-07-24 15:58] LABS: AUTOMATED NEUTROPHIL # 6.5 TH/MM3 (1.8-7.7); BASOPHIL % 0.3 % (0.0-2.0); EOSINOPHIL # 0.1 TH/MM3 (0-0.4); EOSINOPHIL % 0.8 % (0.0-4.0); HEMATOCRIT 36.3 % (35.0-46.0); HEMO FLAGS DIFF FINAL; LYMPH % 13.5 % (9.0-44.0); LYMPHOCYTE # 1.1 TH/MM3 (1.0-4.8); MEAN CELL VOLUME 90.1 FL (80.0-100.0); MEAN CORPUSCULAR HEMOGLOBIN 29.6 PG (27.0-34.0); MEAN CORPUSCULAR HGB CONC 32.9 % (32.0-36.0); MONO % 3.5 % (0.0-8.0); NEUT % 81.9 % (16.0-70.0); PLATELET COUNT 324 TH/MM3 (150-450); RED BLOOD COUNT 4.03 MIL/MM3 (4.00-5.30); WHITE BLOOD COUNT 7.9 TH/MM3 (4.0-11.0)
[2016-07-24] MEDS ORDERED: BUPIVACAINE HCL PF 0.5% 30 ML VIAL ONE (17:30)
[2016-07-24] MEDS ORDERED: LIDOCAINE HCL 2% 50 ML VIAL ONE (17:30)
[2016-07-24] MEDS ORDERED: MUPIROCIN 2% OINT 22 GM TUBE ONE (17:30)
--- NOTE | 2016-07-24 17:59 | MB ---
cc: SANIYA FALL DATE OF CONSULTATION 07/24/16 REASON FOR CONSULTATION Right elbow abscess. HISTORY OF PRESENT ILLNESS The patient is a 36-year-old right-hand dominant female with history of IV drug abuse who presented to the hospital [id number] days ago for pain, swelling over the right antecubital fossa region. She states she injected three days ago and noticed worsening pain, swelling, redness. The patient had incision and drainage of the abscess one day ago. She still complains of worsening pain, extending up to the armpit and extending distally. Denies any fever. Denies any chills. She also denies any tingling or numbness. She gives history of MRSA infection. She also had amputation of the left hand finger for infection. PAST MEDICAL HISTORY/SURGICAL HISTORY Reviewed. Examination of right upper extremity reveals a transverse incision over the volar aspect of the antecubital fossa with packing in place. Examination after removal of packing reveals blood tinged drainage from the region. There is erythema extending up to the axilla and then distally up to the mid forearm, evidence of surrounding induration noted around the incision site. Tenderness noted over the region. The forearm compartments appears to be soft. Elbow range of motion is painful. She has intact distal circulation. She has intact distal sensation. LABORATORY DATA Lab work was reviewed. She has a white count of 10.7 and neutrophil shift of 72%. IMAGING STUDIES She had ultrasound of the left upper right elbow region which showed irregular hypoechoic phlegmonous over the antecubital fossa more than 3 cm in the deep subcutaneous tissue likely phlegmon versus developing abscess. ASSESSMENT A 36-year-old female with abscess in the antecubital fossa right elbow status post incision and drainage with persistent/worsening symptoms. PLAN Keep the patient n.p.o., take her emergently for incision and drainage of right elbow abscess. She has been explained risk and benefits of the procedure. We will continue with IV antibiotics. Saniya Fall MD SE/ /4:11 PM /5:46 PM [facility]ITALTr[facility]
[2016-07-24] MEDS ORDERED: NEOMYCIN/POLYMYXIN 1 ML G.U. IRRIGANT IR ONE (18:35)
[2016-07-24] MEDS ORDERED: *MEPERIDINE 25 MG INJ VIAL PERIprocedural Use ONLY ONE (19:21)
[2016-07-24] MEDS ORDERED: fentaNYL CITRATE 250 MCG/5 ML AMP ONE (19:22)
[2016-07-24] MEDS ORDERED: *diphenhydrAMINE HCL 50 MG/ML VIAL PERIprocedural Use ONLY ONE (19:31)
[2016-07-24] MEDS ORDERED: *morphine SULFATE 8 MG/ML PERIprocedure ONLY ONE ×2 (19:37→19:45)
[2016-07-24] MEDS ORDERED: ACETAMINOPHEN 1000 MG/100 ML VIAL IV ONE ×2 (19:44→20:00)
[2016-07-24] MEDS ORDERED: DO NOT ADM ANY ANTICOAGULANT DRUGS XX PRN (20:00)
[2016-07-24] MEDS: HYDROmorphone HCL PF 1 MG/ML VIAL IV PRN (21:09)
[2016-07-25] VITALS (8 sets, daily range): BP systolic 100–116; BP diastolic 57–75; PULSE 72–90; RESP 17–20; TEMP 96.1–98.6; O2SAT 94–98
[2016-07-25] MEDS: oxyCODONE/ACETAMINOPHEN 10 MG/325 MG TAB PO PRN ×4 (00:16→22:44)
[2016-07-25] MEDS: HYDROmorphone HCL PF 1 MG/ML VIAL IV PRN ×6 (01:09→20:28)
[2016-07-25] MEDS: LINEZOLID 600 MG PREMIX 300 ML IV SCH ×2 (02:41→13:08)
[2016-07-25] MEDS: PIPERACIL-TAZO 4.5 GM PREMIX 100 ML IV SCH ×4 (04:01→22:45)
[2016-07-25] MEDS: SODIUM CHLORIDE 0.9% FLUSH 5 ML FLUSH FLUSH SCH ×2 (09:00→20:27)
[2016-07-25] MEDS: HEPARIN SODIUM - SQ 10,000 UNITS/ML VIAL SQ SCH ×2 (09:10→20:28)
--- NOTE | 2016-07-25 11:15 | HHI.PR ---
Subjective History of Present Illness R arm is painful / pain meds are helping No N/V appetite is ok No fever or chills No cp or SOB offers no other c/o Vitals/Results Intake & Output 07/24/16 07/24/16 07/25/16 15:00 23:00 07:00 Intake Total 2404 ml 240 ml Output Total 250 ml 400 ml Balance 2154 ml -160 ml Intake Oral 1404 ml 240 ml IV Total 550 ml Other 450 ml Output Urine Total 250 ml 400 ml Estimated Blood Loss 0 ml # Voids 1 Vital Signs Vital Signs Date Time Temp Pulse Resp B/P Pulse Ox O2 Delivery O2 Flow Rate FiO2 07/25/16 10:19 20 07/25/16 08:00 96.1 72 18 116/75 97 07/25/16 04:00 97.1 77 18 105/65 97 07/25/16 00:00 97.8 79 20 107/57 97 07/24/16 22:24 96.3 78 20 119/57 97 07/24/16 22:00 98.2 71 14 122/78 99 Nasal Cannula 3 07/24/16 22:00 98.2 71 122/78 99 07/24/16 21:39 16 07/24/16 21:00 98.4 72 14 122/80 99 Nasal Cannula 3 07/24/16 21:00 98.4 72 122/80 99 07/24/16 20:45 74 114/77 99 07/24/16 20:45 74 16 114/77 99 Nasal Cannula 3 07/24/16 20:35 68 122/70 99 07/24/16 20:30 68 16 122/70 99 Nasal Cannula 3 07/24/16 20:25 71 129/86 99 07/24/16 20:15 74 16 129/90 100 Nasal Cannula 3 07/24/16 20:00 70 15 130/88 100 Nasal Cannula 3 07/24/16 19:45 79 16 133/88 99 Nasal Cannula 3 07/24/16 19:30 85 15 121/85 99 Nasal Cannula 3 07/24/16 19:15 97.8 81 15 125/87 99 Nasal Cannula 3 07/24/16 16:27 97.8 69 18 131/77 100 07/24/16 13:05 98.1 76 16 114/74 98 CBC/BMP: 07/24/16 1531 07/22/16 2235 Lab Results Laboratory Tests Test 07/24/16 15:31 White Blood Count 7.9 TH/MM3 Red Blood Count 4.03 MIL/MM3 Hemoglobin 11.9 GM/DL Hematocrit 36.3 % Mean Corpuscular Volume 90.1 FL Mean Corpuscular Hemoglobin 29.6 PG Mean Corpuscular Hemoglobin 32.9 % Concent Red Cell Distribution Width 13.0 % Platelet Count 324 TH/MM3 Mean Platelet Volume 8.5 FL Neutrophils (%) (Auto) 81.9 % Lymphocytes (%) (Auto) 13.5 % Monocytes (%) (Auto) 3.5 % Eosinophils (%) (Auto) 0.8 % Basophils (%) (Auto) 0.3 % Neutrophils # (Auto) 6.5 TH/MM3 Lymphocytes # (Auto) 1.1 TH/MM3 Monocytes # (Auto) 0.3 TH/MM3 Eosinophils # (Auto) 0.1 TH/MM3 Basophils # (Auto) 0.0 TH/MM3 CBC Comment DIFF FINAL Differential Comment Microbiology Microbiology 07/24/16 Gram Stain - Final, Resulted 07/24/16 Wound Culture - Preliminary, Resulted NO GROWTH IN 24 HOURS. Physical Exam General General Appearance: No Acute Distress, Comfortable Eyes Eye Exam: Sclera White, Extraocular Movement Intact Ears & Nose Ears & Nose Exam: Nasal Mucosa [place] Throat Throat Exam: Oral Mucosa [place] & Moist Neck Neck Exam: Neck Supple, Trachea Midline Pulmonary Resp Exam: Clear Bilaterally, Breath Sounds Equal Cardiology CV Exam: Regular, Normal Sinus Rhythm Gastrointestinal/Abdomen GI Exam: Soft, Non-Tender, Bowel Sounds Present Musculoskeletal MS Remarks R arm dressing intact Extremeties Extremities Exam: No Edema, Pedal Pulses Palpable Neurologic Neuro Exam: Alert, Awake, Oriented, Speech Clear, Moving All Extremities Assessment/Plan Assessment/Plan Diagnosis: (1) early sepsis (2) Abscess of right arm (3) Cellulitis (4) IV drug abuse (5) Substance use disorder (6) Hx MRSA infection (7) Hx of osteomyelitis Assessment and Plan Early sepsis, right AC abscess with cellulitis, / IVDU. Recently injected cocaine and heroine. appreciate Surgery input , s/p I&D of abscess wound care -Continue antibiotics -Follow cultures -ID input appreciated -Neurovascular checks -Continue with IVF -Continue Percocet for pain management IVDU, recent relapse -Patient has been counseled repeatedly , encouraged to seek rehabilitation. UTI -Continue antibiotics, follow cultures History of bipolar, anxiety, patient not on any medication -Monitor, appears stable Heparin for DVT prophylaxis continue with present tx Ml Whittington MD Jul 25, 2016 11:15
[2016-07-25] MEDS: SODIUM CHLOR 0.9% 1000 ML INJ 1,000 ML IV SCH (13:09)
--- NOTE | 2016-07-25 13:48 | HHI.IDPN ---
Subjective Subjective Remarks Notes reviewed Temps down but C/O sweats Pain under better control Had I and D abscess L antecubital fossa yesterday C/S pending BC negative so far Initial C/S with normal skin kristie Antibiotics Zyvox Zosyn Lines PIV Past Medical History COPD Bipolar disorder Infection of the left finger with MRSA Previous abscess in her left upper extremity, had drainage DVT left upper extremity History of kidney stones Past Surgical History Left rotator cuff surgery Previous drainage of an abscess Recent surgery on her left index finger for MRSA infection Allergies: Coded Allergies: *MDRO Multi-Drug Resistant Organism (Verified Adverse Reaction, Unknown, ) MRSA (finger-04/23/16 & 05/10/16) Vancomycin (Verified Adverse Reaction, Unknown, Itching, 07/23/16) AND REDNESS Objective . Vital Signs Date Time Temp Pulse Resp B/P Pulse Ox O2 Delivery O2 Flow Rate FiO2 07/25/16 12:00 96.8 79 17 106/65 98 07/25/16 10:19 20 07/25/16 08:50 98 21 07/25/16 08:00 96.1 72 18 116/75 97 07/25/16 04:00 97.1 77 18 105/65 97 07/25/16 00:00 97.8 79 20 107/57 97 07/24/16 22:24 96.3 78 20 119/57 97 07/24/16 22:00 98.2 71 14 122/78 99 Nasal Cannula 3 07/24/16 22:00 98.2 71 122/78 99 07/24/16 21:39 16 07/24/16 21:00 98.4 72 14 122/80 99 Nasal Cannula 3 07/24/16 21:00 98.4 72 122/80 99 07/24/16 20:45 74 114/77 99 07/24/16 20:45 74 16 114/77 99 Nasal Cannula 3 07/24/16 20:35 68 122/70 99 07/24/16 20:30 68 16 122/70 99 Nasal Cannula 3 07/24/16 20:25 71 129/86 99 07/24/16 20:15 74 16 129/90 100 Nasal Cannula 3 07/24/16 20:00 70 15 130/88 100 Nasal Cannula 3 07/24/16 19:45 79 16 133/88 99 Nasal Cannula 3 07/24/16 19:30 85 15 121/85 99 Nasal Cannula 3 07/24/16 19:15 97.8 81 15 125/87 99 Nasal Cannula 3 07/24/16 16:27 97.8 69 18 131/77 100 07/24/16 07/24/16 07/25/16 15:00 23:00 07:00 Intake Total 2404 ml 240 ml Output Total 250 ml 400 ml Balance 2154 ml -160 ml Intake Oral 1404 ml 240 ml IV Total 550 ml Other 450 ml Output Urine Total 250 ml 400 ml Estimated Blood Loss 0 ml # Voids 1 . Laboratory Tests Test 07/24/16 15:31 White Blood Count 7.9 TH/MM3 Red Blood Count 4.03 MIL/MM3 Hemoglobin 11.9 GM/DL Hematocrit 36.3 % Mean Corpuscular Volume 90.1 FL Mean Corpuscular Hemoglobin 29.6 PG Mean Corpuscular Hemoglobin 32.9 % Concent Red Cell Distribution Width 13.0 % Platelet Count 324 TH/MM3 Mean Platelet Volume 8.5 FL Neutrophils (%) (Auto) 81.9 % Lymphocytes (%) (Auto) 13.5 % Monocytes (%) (Auto) 3.5 % Eosinophils (%) (Auto) 0.8 % Basophils (%) (Auto) 0.3 % Neutrophils # (Auto) 6.5 TH/MM3 Lymphocytes # (Auto) 1.1 TH/MM3 Monocytes # (Auto) 0.3 TH/MM3 Eosinophils # (Auto) 0.1 TH/MM3 Basophils # (Auto) 0.0 TH/MM3 CBC Comment DIFF FINAL Differential Comment Microbiology Date/Time Procedure Status Source Growth 07/22/16 22:30 Urine Culture - Final Complete Urine Catheterized Urine 50-100,000 CFU/ML MIXED GRAM POSITIVE... 07/22/16 22:35 Aerobic Blood Culture - Preliminary Resulted Blood Peripheral NO GROWTH IN 3 DAYS 07/22/16 22:35 Anaerobic Blood Culture - Preliminary Resulted Blood Peripheral NO GROWTH IN 3 DAYS 07/22/16 22:50 Aerobic Blood Culture - Preliminary Resulted Blood Peripheral NO GROWTH IN 3 DAYS 07/22/16 22:50 Anaerobic Blood Culture - Preliminary Resulted Blood Peripheral NO GROWTH IN 3 DAYS 07/23/16 01:00 Gram Stain - Final Resulted Wound Arm 07/23/16 01:00 Wound Culture - Preliminary Resulted Wound Arm 07/24/16 18:44 Gram Stain - Final Resulted Wound Elbow 07/24/16 18:44 Wound Culture - Preliminary Resulted Wound Elbow NO GROWTH IN 24 HOURS. Imaging Upper Extremity Ultrasound 07/22/16 0000 Signed Impressions: Service Date/Time: Friday, July 22, 2016 23:08 - CONCLUSION: Phlegmonous changes, likely developing abscess process in the right arm as described Lalo Nina MD Physical Exam GENERAL: awake and alert, in no apparent distress. SKIN: Warm and moist, no generalized rash or ecchymosis. No evidence of embolic lesions. HEENT: [place] conjunctivae, no petechia or hemorrhage. No scleral icterus. Moist oral mucosa. NECK: Trachea midline. No JVD or lymphadenopathy. Supple, nontender, no meningeal signs. CARDIOVASCULAR: Regular rate and rhythm without murmurs, gallops, or rubs. RESPIRATORY: Clear to auscultation. Breath sounds equal bilaterally. No wheezes , rales, or rhonchi. GASTROINTESTINAL: Abdomen soft, non-tender, nondistended. Bowel sounds are present and normoactive. No organomegaly. No guarding. MUSCULOSKELETAL: Extremities without clubbing, cyanosis, or edema. No joint tenderness, effusion, or edema noted. No calf tenderness. In the RUE - she has dry intact dressing, this is from OR yesterday and I did not remove tyhe dressing NEUROLOGICAL: Non-focal PSYCH: Calm and cooperative LINE: PIV with no evidence of infection Assessment & Plan Remarks IMPRESSION Sepsis on admission due to infected IVDU site Cellulitis, abscess LUE from due to IVDU - S/P I and D Fevers better RECOMMENDATION Continue Zosyn Continue Zyvox Follow C/S and adjust Abx - hopefully there will be an oral Abx that we could use when she gets D/C Monitor temps Monitor progress I will look at arm tomorrow when of with surgery to remove dressing Explained plan to patient Audra Nettles MD Jul 25, 2016 13:48
--- NOTE | 2016-07-25 17:33 | HHI.PR ---
Subjective Remarks complains of pain over right elbow Objective Vital Signs Date Time Temp Pulse Resp B/P Pulse Ox O2 Delivery O2 Flow Rate FiO2 07/25/16 16:30 18 07/25/16 12:00 96.8 79 17 106/65 98 07/25/16 11:00 20 07/25/16 08:50 98 21 07/25/16 08:00 96.1 72 18 116/75 97 07/25/16 04:00 97.1 77 18 105/65 97 07/25/16 00:00 97.8 79 20 107/57 97 07/24/16 22:24 96.3 78 20 119/57 97 07/24/16 22:00 98.2 71 14 122/78 99 Nasal Cannula 3 07/24/16 22:00 98.2 71 122/78 99 07/24/16 21:00 98.4 72 14 122/80 99 Nasal Cannula 3 07/24/16 21:00 98.4 72 122/80 99 07/24/16 20:45 74 114/77 99 07/24/16 20:45 74 16 114/77 99 Nasal Cannula 3 07/24/16 20:35 68 122/70 99 07/24/16 20:30 68 16 122/70 99 Nasal Cannula 3 07/24/16 20:25 71 129/86 99 07/24/16 20:15 74 16 129/90 100 Nasal Cannula 3 07/24/16 20:00 70 15 130/88 100 Nasal Cannula 3 07/24/16 19:45 79 16 133/88 99 Nasal Cannula 3 07/24/16 19:30 85 15 121/85 99 Nasal Cannula 3 07/24/16 19:15 97.8 81 15 125/87 99 Nasal Cannula 3 I/O 07/24/16 07/24/16 07/24/16 07/25/16 07/25/16 07/25/16 07:00 15:00 23:00 07:00 15:00 23:00 Intake Total 2404 ml 240 ml 960 ml Output Total 250 ml 400 ml 600 ml Balance 2154 ml -160 ml 360 ml Intake Oral 1404 ml 240 ml 500 ml IV Total 550 ml 460 ml Other 450 ml Output Urine Total 250 ml 400 ml 600 ml Estimated Blood Loss 0 ml # Voids 2 1 # Bowel Movements 1 right elbow: packing in place decreased swelling packing pulled out about 5 cm, seropurulent drainage noted cultures: no growth Result Diagram: 07/24/16 1531 07/22/16 2235 Assessment and Plan Assessment and Plan 36 year old female s/p incision and drainage right elbow abscess pod1 packing pulled out about 5cm, dry dressing applied continue with iv antibiotics dressing change tomorrow. Cornel Gray MD Jul 25, 2016 17:32
[2016-07-26] VITALS (8 sets, daily range): BP systolic 107–125; BP diastolic 61–68; PULSE 75–95; RESP 17–19; TEMP 97–98.6; O2SAT 95–100
[2016-07-26] MEDS: HYDROmorphone HCL PF 1 MG/ML VIAL IV PRN ×7 (00:42→21:19)
[2016-07-26] MEDS: SODIUM CHLOR 0.9% 1000 ML INJ 1,000 ML IV SCH ×2 (01:41→16:46)
[2016-07-26] MEDS: LINEZOLID 600 MG PREMIX 300 ML IV SCH ×2 (02:25→12:58)
[2016-07-26] MEDS: PIPERACIL-TAZO 4.5 GM PREMIX 100 ML IV SCH ×4 (03:51→21:19)
[2016-07-26] MEDS: oxyCODONE/ACETAMINOPHEN 10 MG/325 MG TAB PO PRN ×3 (06:30→19:34)
[2016-07-26] MEDS: HEPARIN SODIUM - SQ 10,000 UNITS/ML VIAL SQ SCH ×2 (08:25→19:34)
[2016-07-26] MEDS: SODIUM CHLORIDE 0.9% FLUSH 5 ML FLUSH FLUSH SCH ×2 (08:25→19:34)
--- NOTE | 2016-07-26 11:54 | HHI.PR ---
Subjective History of Present Illness The patient is a 36 year old female with a history of opioid IVDU, MRSA infection with previous I/D of left AC abscess Fe. 2015, bipolar, COPD, anxiety. Most recently she underwent DIP joint amputation for osteomyelitis and MRSA infection. Pt. presented with right antecubital and arm, swelling and redness. States she injected cocaine and heroin 2 days ago. She had subjective fever, chills, no cp, no sob, no cough, no sputum, no urinary symptoms, no diarrhea. Pt. was noted febrile 100.3, tachycardic HR 103, BP 153/94, RR 20 on admission. WBC was normal. Lactic acid 1.3. US of left arm showed developing abscess. Hospital Day: 3 (3) Subjective Remarks no chest pain No shortness of breath No headache No acute anxiety. (Derek Arellano) Review of Systems Constitutional Constitutional: Weakness (10 point review obtained. unremarkable.) (Derek Arellano) Vitals/Results Intake & Output 07/25/16 07/25/16 07/26/16 15:00 23:00 07:00 Intake Total 960 ml 510 ml 632 ml Output Total 600 ml 400 ml 300 ml Balance 360 ml 110 ml 332 ml Intake Oral 500 ml 240 ml 240 ml IV Total 460 ml 270 ml 392 ml Output Urine Total 600 ml 400 ml 300 ml # Bowel Movements 1 0 0 Vital Signs Vital Signs Date Time Temp Pulse Resp B/P Pulse Ox O2 Delivery O2 Flow Rate FiO2 07/26/16 08:10 100 21 07/26/16 07:48 97.3 82 19 108/62 100 07/26/16 03:51 95 18 115/68 97 07/26/16 00:00 98.6 85 18 107/66 95 07/25/16 20:00 98.6 85 17 100/64 94 07/25/16 18:10 98 21 07/25/16 18:00 20 07/25/16 16:30 18 07/25/16 16:00 98.1 90 17 112/75 98 07/25/16 12:00 96.8 79 17 106/65 98 (Derek Arellano) CBC/BMP: 07/24/16 1531 07/22/16 2235 Current Medications Current Medications Medications (Trade) Dose Ordered Sig/Jc Route Start Time Stop Time Status Last Admin (NS 1000 ml Inj) 1,000 ml @ 70 mls/hr [id number] IV 07/23/16 02:00 07/26/16 01:41 (NS Flush) 2 ml UNSCH PRN FLUSH 07/23/16 01:30 (NS Flush) 2 ml BID FLUSH 07/23/16 09:00 07/25/16 20:27 (Tylenol) 650 mg Q4H PRN PO 07/23/16 01:30 07/24/16 05:44 (Zofran Inj) 4 mg Q6H PRN IVP 07/23/16 01:30 (Senokot) 17.2 mg Q12H PRN PO 07/23/16 01:30 (Ambien) 5 mg HS PRN PO 07/23/16 01:30 (Toradol Inj) 15 mg Q6H PRN IVP 07/23/16 01:30 07/28/16 01:29 07/24/16 14:38 (Toradol Inj) 30 mg Q6H PRN IVP 07/23/16 01:30 07/28/16 01:29 07/24/16 11:41 (Percocet 10-325 Mg) 1 tab Q6H PRN PO 07/23/16 01:30 07/26/16 06:30 (Dilaudid Pf Inj) 1 mg Q3H PRN IV 07/23/16 01:30 07/26/16 11:44 (Roxicodone) 5 mg Q4H PRN PO 07/23/16 01:30 Naloxone HCl 0.4 mg 0.4 mg UNSCH PRN IV 07/23/16 01:30 Piperacillin Sod/ Tazobactam Sod 100 ml @ 200 mls/hr Q6H IV 07/23/16 04:00 07/26/16 08:25 (Zyvox 600 Mg Premix) 300 ml @ 300 mls/hr Q12H IV 07/23/16 02:00 07/26/16 02:25 (Heparin Inj) 5,000 units Q12H SQ 07/25/16 09:00 07/26/16 08:25 (Derek Arellano) Physical Exam General General Appearance: No Acute Distress, Comfortable (Derek Arellano. PROCESSING REP) Eyes Eye Exam: Sclera White, Extraocular Movement Intact ([place] gr[place]. PROCESSING REP) Ears & Nose Ears & Nose Exam: Nasal Mucosa [place] ([place],Susan M. PROCESSING REP) Throat Throat Exam: Oral Mucosa [place] & Moist ([place],Derek M. PROCESSING REP) Neck Neck Exam: Neck Supple, Trachea Midline ([place]rek grider. PROCESSING REP) Pulmonary Resp Exam: Clear Bilaterally, Breath Sounds Equal ([place],Susan M. PROCESSING REP) Cardiology CV Exam: Regular, Normal Sinus Rhythm ([place],Susan M. PROCESSING REP) Gastrointestinal/Abdomen GI Exam: Soft, Non-Tender, Bowel Sounds Present ([place],Susan M. PROCESSING REP) Extremeties Extremities Exam: No Edema, Pedal Pulses Palpable ([place],Derek M. PROCESSING REP) Neurologic Neuro Exam: Alert, Awake, Oriented, Speech Clear, Moving All Extremities ( Derek Arellano M. PROCESSING REP) Assessment/Plan Assessment/Plan Diagnosis: (1) early sepsis (2) Abscess of right arm (3) Cellulitis (4) IV drug abuse (5) Substance use disorder (6) Hx MRSA infection (7) Hx of osteomyelitis Assessment and Plan Early sepsis, right AC abscess with cellulitis, / IVDU. Recently injected cocaine and heroine. appreciate Surgery input , s/p I&D of abscess wound care -Continue antibiotics -Follow cultures -ID input appreciated -Neurovascular checks -Continue with IVF -Continue Percocet for pain management IVDU, recent relapse -Patient has been counseled repeatedly , encouraged to seek rehabilitation. UTI -Continue antibiotics, follow cultures History of bipolar, anxiety, patient not on any medication -Monitor, appears stable Heparin for DVT prophylaxis continue with present tx Discussed Condition Comment DR. Whittington, nurse, Case management (Derek Arellano) Assessment/Plan pt is seen & EXAMINED D/W pt D/W derek cont current tx cont abx d/c when Ok w ID & surgery (Ml Whittington MD) Derek Arellano Jul 26, 2016 11:54 Ml Whittington MD Jul 26, 2016 12:38
[2016-07-27] VITALS: BP 108/62; PULSE 73; RESP 18; TEMP 97.6; O2SAT 97
[2016-07-27] MEDS: HYDROmorphone HCL PF 1 MG/ML VIAL IV PRN ×7 (00:26→23:54)
[2016-07-27] MEDS: LINEZOLID 600 MG PREMIX 300 ML IV SCH (00:26)
[2016-07-27] MEDS: PIPERACIL-TAZO 4.5 GM PREMIX 100 ML IV SCH ×2 (03:35→08:51)
[2016-07-27] MEDS: oxyCODONE/ACETAMINOPHEN 10 MG/325 MG TAB PO PRN ×4 (03:35→22:34)
[2016-07-27] MEDS: SODIUM CHLOR 0.9% 1000 ML INJ 1,000 ML IV SCH ×2 (06:07→20:19)
[2016-07-27 08:00] VITALS: BP 116/71; PULSE 70; RESP 18; TEMP 97; O2SAT 99
[2016-07-27] MEDS: HEPARIN SODIUM - SQ 10,000 UNITS/ML VIAL SQ SCH ×2 (08:50→20:20)
[2016-07-27] MEDS: SODIUM CHLORIDE 0.9% FLUSH 5 ML FLUSH FLUSH SCH ×2 (08:51→20:18)
--- NOTE | 2016-07-27 11:12 | HHI.IDPN ---
Subjective Subjective Remarks Notes reviewed Temps down C/O pain in her R shoulder in upper arm close to arm pit C/S from OR negative Also C/O diarrhea Antibiotics Zyvox Zosyn Lines PIV Past Medical History COPD Bipolar disorder Infection of the left finger with MRSA Previous abscess in her left upper extremity, had drainage DVT left upper extremity History of kidney stones Past Surgical History Left rotator cuff surgery Previous drainage of an abscess Recent surgery on her left index finger for MRSA infection Allergies: Coded Allergies: *MDRO Multi-Drug Resistant Organism (Verified Adverse Reaction, Unknown, ) MRSA (finger-04/23/16 & 05/10/16) Vancomycin (Verified Adverse Reaction, Unknown, Itching, 07/23/16) AND REDNESS Objective . Vital Signs Date Time Temp Pulse Resp B/P Pulse Ox O2 Delivery O2 Flow Rate FiO2 07/27/16 08:00 97.0 70 18 116/71 99 07/27/16 00:00 97.6 73 18 108/62 97 07/26/16 20:00 98.6 75 18 125/61 98 07/26/16 18:02 96 21 07/26/16 15:55 97.3 80 17 116/66 96 07/26/16 12:00 97.0 93 18 114/63 99 07/26/16 07/26/16 07/27/16 15:00 23:00 07:00 Intake Total 1786 ml 663 ml 1116 ml Output Total 600 ml 1200 ml 400 ml Balance 1186 ml -537 ml 716 ml Intake Oral 1080 ml 240 ml 240 ml IV Total 706 ml 423 ml 876 ml Output Urine Total 600 ml 1200 ml 400 ml # Bowel Movements 1 0 0 . Microbiology Date/Time Procedure Status Source Growth 07/24/16 18:44 Gram Stain - Final Resulted Wound Elbow 07/24/16 18:44 Wound Culture - Preliminary Resulted Wound Elbow NO GROWTH IN 48 HOURS. Imaging Upper Extremity Ultrasound 07/22/16 0000 Signed Impressions: Service Date/Time: Friday, July 22, 2016 23:08 - CONCLUSION: Phlegmonous changes, likely developing abscess process in the right arm as described Lalo Nina MD Physical Exam GENERAL: awake and alert, NAD SKIN: Warm and moist, no generalized rash HEENT: [place] conjunctivae, no petechia or hemorrhage. No scleral icterus. Moist oral mucosa. NECK: Trachea midline. No JVD or lymphadenopathy. Supple, nontender, no meningeal signs. CARDIOVASCULAR: Regular rate and rhythm without murmurs, gallops, or rubs. RESPIRATORY: Clear to auscultation. Breath sounds equal bilaterally. No wheezes , rales, or rhonchi. GASTROINTESTINAL: Abdomen soft, non-tender, nondistended. Bowel sounds are present and normoactive. No organomegaly. No guarding. MUSCULOSKELETAL: RUE - incision with some reddish yellow drainage in the dressing, none from incision at time of exam, has iodoform packing in place, redness all gone. MOst of edema in dependent portion of her R upper arm. NEUROLOGICAL: Non-focal PSYCH: Calm and cooperative LINE: PIV with no evidence of infection Assessment & Plan Remarks IMPRESSION Sepsis on admission due to infected IVDU site Cellulitis, abscess LUE from due to IVDU - S/P I and D - better Fevers better Diarrhea RECOMMENDATION Stool for C diff Add Lactinex Stop Zyvox Stop Zosyn Change to Doxy and Cipro Should be ok to D/C from ID standpoint if C diff negative or if diarrhea resolved Explained plan to patient Audra Nettles MD Jul 27, 2016 11:12
[2016-07-27 11:39] VITALS: BP 110/65; PULSE 80; RESP 18; TEMP 98; O2SAT 99
[2016-07-27] MEDS: DOXYCYCLINE HYCLATE 100 MG CAP PO SCH ×2 (12:15→20:19)
[2016-07-27] MEDS: LACTOBACILLUS ACIDOPHILUS TAB PO SCH ×2 (12:15→17:05)
[2016-07-27] MEDS: CIPROFLOXACIN 500 MG TAB PO SCH ×2 (12:15→20:19)
--- NOTE | 2016-07-27 12:48 | MP ---
cc: SANIYA FALL MD DATE OF SURGERY 07/24/2016 PREOPERATIVE DIAGNOSIS Abscess antecubital fossa. POSTOPERATIVE DIAGNOSIS Abscess antecubital fossa/arm. PROCEDURE Incision and drainage right antecubital fossa/arm SURGEON Dr. Fall ANESTHESIA General ESTIMATED BLOOD LOSS Minimal TOURNIQUET TIME 19 minutes at 250 mmHg DISPOSITION To PACU stable. SPECIMEN Swabs were obtained for culture sensitivity. INDICATIONS The patient is a 36-year-old female with history of IV drug abuse in September presenting with complaints of pain and swelling over the right elbow/arm region following IV drug abuse. She had incision and drainage of the abscess in the ER with persistent symptoms and hand surgery was consulted. She complained of pain, swelling, redness over the anterior aspect of the elbow region extending both proximally and distally. She had a normal white count with neutrophil shift of 70% and ultrasound prior to drainage by the ER showed deep subcutaneous collection more than 3 cm, questionable phlegmon versus developing abscess. Because of the persistent symptoms, she was considered for incision and drainage of right elbow abscess. The patient was explained the risks and benefits of the procedure. PROCEDURE The patient was brought to the operating room. Under general anesthesia, the right upper extremity was thoroughly prepped and draped after limb elevation. The tourniquet was inflated to 250 mmHg. She had transverse incision over the anterior aspect of the elbow which was extended in a curvilinear fashion. Using a Bovie, subcutaneous dissection was carried out. The abscess cavity was then exposed. This was beneath the lacertus fibrosus which was partially incised on the medial aspect. There was an abscess cavity on the anterior aspect of the deep subcutaneous tissue which was extending both proximally and medially. Multiple pockets were encountered which was bluntly dissected with a finger. She also had a cavity extending distally along the medial aspect of the forearm which was also bluntly dissected with finger dissection. Minimal purulent material was noted which was sent for culture and sensitivity. A thorough wash was given with normal saline mixed with irrigant and hydrogen peroxide. The tourniquet was deflated. The total tourniquet time was 19 mins. She had good distal circulation after release of the tourniquet. bleeding points controlled bipolar cautery. Packing of the wound was carried out with one-fourth inch packing and Iodoform packing material. The skin was loosely approximated using 4-0 nylon in a horizontal mattress interrupted fashion and about 4 cc of local anesthesia was instilled into the wound. Part of the wound was left open on the medial aspect. A bulky hand dressing was applied which was held in place by Sof-Rol and bias hand wrap. She had good distal circulation at the end of the procedure. She was recovered and sent to the Recovery Room in stable condition. We will change the packing tomorrow and continue with the IV antibiotics. Saniya Fall MD SE/GINA /7:47 PM /12:36 PM MTDTracy
--- NOTE | 2016-07-27 15:51 | HHI.PR ---
Subjective History of Present Illness The patient is a 36 year old female with a history of opioid IVDU, MRSA infection with previous I/D of left AC abscess Aug. 2015, bipolar, COPD, anxiety. Most recently she underwent DIP joint amputation for osteomyelitis and MRSA infection. Pt. presented with right antecubital and arm, swelling and redness. States she injected cocaine and heroin 4 days ago. Pt. was noted febrile 100.3, tachycardic HR 103, BP 153/94, RR 20 on admission. WBC was normal. Lactic acid 1.3. US of left arm showed developing abscess. Hospital Day: 4 Subjective Remarks no chest pain No shortness of breath No headache Anxiety mild due to lt arm pain (Rajni Arellano) Review of Systems Constitutional Constitutional: Weakness (10 point review done/ unremarkable.) (Rajni Arellano) Vitals/Results Intake & Output 07/26/16 07/26/16 07/27/16 15:00 23:00 07:00 Intake Total 1786 ml 663 ml 1116 ml Output Total 600 ml 1200 ml 400 ml Balance 1186 ml -537 ml 716 ml Intake Oral 1080 ml 240 ml 240 ml IV Total 706 ml 423 ml 876 ml Output Urine Total 600 ml 1200 ml 400 ml # Bowel Movements 1 0 0 Vital Signs Vital Signs Date Time Temp Pulse Resp B/P Pulse Ox O2 Delivery O2 Flow Rate FiO2 07/27/16 11:39 98.0 80 18 110/65 99 07/27/16 08:00 97.0 70 18 116/71 99 07/27/16 00:00 97.6 73 18 108/62 97 07/26/16 20:00 98.6 75 18 125/61 98 07/26/16 18:02 96 21 07/26/16 15:55 97.3 80 17 116/66 96 (Rajni Arellano) CBC/BMP: 07/24/16 1531 Lab Results Date/Time Procedure Status Source Growth 07/24/16 18:44 Gram Stain - Final Complete Wound Elbow 07/24/16 18:44 Wound Culture - Final Complete Wound Elbow NO GROWTH IN 72 HRS.--AEROBICALLY OR ... 07/22/16 22:50 Aerobic Blood Culture - Final Complete Blood Peripheral NO GROWTH IN 5 DAYS 07/22/16 22:50 Anaerobic Blood Culture - Final Complete Blood Peripheral NO GROWTH IN 5 DAYS 07/22/16 22:30 Urine Culture - Final Complete Urine Catheterized Urine 50-100,000 CFU/ML MIXED GRAM POSITIVE... Microbiology Microbiology Date/Time Procedure Status Source Growth 07/24/16 18:44 Gram Stain - Final Complete Wound Elbow 07/24/16 18:44 Wound Culture - Final Complete Wound Elbow NO GROWTH IN 72 HRS.--AEROBICALLY OR ... Imaging Remarks Last Impressions Upper Extremity Ultrasound 07/22/16 0000 Signed Impressions: Service Date/Time: Friday, July 22, 2016 23:08 - CONCLUSION: Phlegmonous changes, likely developing abscess process in the right arm as described Lalo Nina MD Current Medications Active Medications Ciprofloxacin (Cipro) 500 mg Q12HR PO Last administered on 07/27/16 12:15; Admin Dose 500 MG; Start 07/27/16 at 12:00; Stop 08/06/16 at 11:59 Doxycycline Hyclate (Vibramycin) 100 mg BID PO Last administered on 07/27/16 12 :15; Admin Dose 100 MG; Start 07/27/16 at 12:00; Stop 08/06/16 at 11:59 Lactobacillus Acidophilus (Lactinex) 1 tab TID PO Last administered on 12:15; Admin Dose 1 TAB; Start 07/27/16 at 13:00 (Rajni ArellanoP) Physical Exam General General Appearance: Well Developed, Well Nourished, No Acute Distress, Comfortable, Anxious (Rajni Arellano NOTEREADER) Eyes Eye Exam: Pupils Equal, Pupils Reactive, Sclera White, Extraocular Movement Intact (Rajni Arellano NOTEREADER) Ears & Nose Ears & Nose Exam: Nasal Mucosa [place] (Rajni Arellano NOTEREADER) Throat Throat Exam: Oral Mucosa [place] & Moist (Rajni Arellano NOTEREADER) Neck Neck Exam: Neck Supple, Trachea Midline (Rajni Arellano NOTEREADER) Pulmonary Resp Exam: Clear Bilaterally, Breath Sounds Equal (Rajni Arellano. NOTEREADER) Cardiology CV Exam: Regular, Normal Sinus Rhythm (Rajni Arellano NOTEREADER) Gastrointestinal/Abdomen GI Exam: Soft, Non-Tender, Bowel Sounds Present (Enigma,Rajni M. NOTEREADER) Musculoskeletal MS Exam: Normal Gait MS Remarks Upper Rt. arm elevated on pillow. Decreased edema noted, pulse 2+4+, Being followed per wound care. Dressing not removed for now. No cyanosis noted. ( Rajni Arellano) Extremeties Extremities Exam: No Edema, Pedal Pulses Palpable (Rajni Arellano) Neurologic Neuro Exam: Alert, Awake, Oriented, Speech Clear, Moving All Extremities ( Rajni Arellano) Assessment/Plan Assessment/Plan pt is seen & EXAMINEDAssessment/Plan Assessment/Plan Diagnosis: (1) early sepsis (2) Abscess of right arm (3) Cellulitis (4) IV drug abuse (5) Substance use disorder (6) Hx MRSA infection (7) Hx of osteomyelitis Assessment and Plan Early sepsis, right AC abscess with cellulitis, / IVDU. Recently injected cocaine and heroine. appreciate Surgery input , s/p I&D of abscess, Wound open with packing per documentation. Wrapped securely with irving. Less edema noted wound care -Continue antibiotics: Iv has discontinued and changed to PO -Follow cultures, negative so far. -ID input appreciated monitoring PO antibiotic needs so pt. can discharge soon. -Neurovascular checks uneventful -Continue with IVF -Continue Percocet for pain management and IV Dilaudid prn. Pt more anxious today, States is worse, but appeared to be resting when I entered room. Reported to Dr. Whittington. IVDU, recent relapse -Patient has been counseled repeatedly , encouraged to seek rehabilitation. UTI -Continue antibiotics, follow cultures History of bipolar, anxiety, patient not on any medication -Monitor, appears stable Heparin for DVT prophylaxis continue with present tx Discussed Condition Comment DR. Whittington, nurse, Case management (Rajni Arellano) d/c when Ok w ID & surgery and ID. Discussed Condition Comment D/W RN D/W Dr. Whittington, D/W patient (Rajni Arellano) Assessment/Plan pt is seen & examined d/w PT d/w rajni d/w Dr Nettles today cont current tx d/c when ok w consultants will f/u (Ml Whittington MD) Rajni Arellano Jul 27, 2016 15:50 Ml Whittington MD Jul 27, 2016 18:09
[2016-07-27 15:53] VITALS: BP 117/77; PULSE 89; RESP 17; TEMP 98.8; O2SAT 98
--- NOTE | 2016-07-27 16:48 | HHI.PR ---
Subjective Remarks complains of pain over right shoulder region complaint with elevation no fever or chills Objective Vital Signs Date Time Temp Pulse Resp B/P Pulse Ox O2 Delivery O2 Flow Rate FiO2 07/27/16 15:53 98.8 89 17 117/77 98 07/27/16 11:39 98.0 80 18 110/65 99 07/27/16 08:00 97.0 70 18 116/71 99 07/27/16 00:00 97.6 73 18 108/62 97 07/26/16 20:00 98.6 75 18 125/61 98 07/26/16 18:02 96 21 I/O 07/26/16 07/26/16 07/26/16 07/27/16 07/27/16 07/27/16 07:00 15:00 23:00 07:00 15:00 23:00 Intake Total 632 ml 1786 ml 663 ml 1116 ml 1799 ml Output Total 300 ml 600 ml 1200 ml 400 ml 600 ml Balance 332 ml 1186 ml -537 ml 716 ml 1199 ml Intake Oral 240 ml 1080 ml 240 ml 240 ml 1080 ml IV Total 392 ml 706 ml 423 ml 876 ml 719 ml Output Urine Total 300 ml 600 ml 1200 ml 400 ml 600 ml # Bowel Movements 0 1 0 0 2 examination of right elbow: packing in place resolved erythema and induration around the elbow region swelling of the dorsal aspect of the hand noted able to make a full fist. intact sensation distally cultures negative to date Result Diagram: 07/24/16 1531 Assessment and Plan Assessment and Plan 36 year old female s/p incision and drainage right elbow abscess pod3 packing removed and repacked with 1/4" iodoform packing material dry dressing applied continue with antibiotics based on ID recommendation hand surgery will follow for dressing change tomorrow. Cornel Gray MD Jul 27, 2016 16:48
[2016-07-27 16:59] LABS: C. DIFF EPI 027 PRESUMPTIVE NEGATIVE (NEGATIVE); C. DIFF TOXIN PCR NEGATIVE (NEGATIVE)
[2016-07-27 20:00] VITALS: BP 118/74; PULSE 91; RESP 16; TEMP 97.8; O2SAT 98
[2016-07-28] VITALS: BP 126/72; PULSE 86; RESP 18; TEMP 97.6; O2SAT 98
[2016-07-28] MEDS: HYDROmorphone HCL PF 1 MG/ML VIAL IV PRN ×3 (02:49→12:24)
[2016-07-28] MEDS: oxyCODONE/ACETAMINOPHEN 10 MG/325 MG TAB PO PRN ×2 (05:14→11:28)
[2016-07-28 08:00] VITALS: BP 127/87; PULSE 91; RESP 18; TEMP 97.6; O2SAT 98
[2016-07-28] MEDS: DOXYCYCLINE HYCLATE 100 MG CAP PO SCH ×2 (08:41→20:53)
[2016-07-28] MEDS: SODIUM CHLOR 0.9% 1000 ML INJ 1,000 ML IV SCH (08:41)
[2016-07-28] MEDS: CIPROFLOXACIN 500 MG TAB PO SCH ×2 (08:41→20:46)
[2016-07-28] MEDS: HEPARIN SODIUM - SQ 10,000 UNITS/ML VIAL SQ SCH ×2 (08:41→20:46)
[2016-07-28] MEDS: LACTOBACILLUS ACIDOPHILUS TAB PO SCH ×2 (08:41→13:00)
[2016-07-28] MEDS: SODIUM CHLORIDE 0.9% FLUSH 5 ML FLUSH FLUSH SCH ×2 (08:42→20:46)
[2016-07-28 12:00] VITALS: BP 125/79; PULSE 87; RESP 17; TEMP 98.2; O2SAT 98
--- NOTE | 2016-07-28 13:17 | HHI.PR ---
Subjective Remarks complains of mild pain no tingling or numbness complaint with elevation no fever or chills Objective Vital Signs Date Time Temp Pulse Resp B/P Pulse Ox O2 Delivery O2 Flow Rate FiO2 07/28/16 12:00 98.2 87 17 125/79 98 07/28/16 08:00 97.6 91 18 127/87 98 07/28/16 00:00 97.6 86 18 126/72 98 07/27/16 20:00 97.8 91 16 118/74 98 07/27/16 15:53 98.8 89 17 117/77 98 I/O 07/27/16 07/27/16 07/27/16 07/28/16 07/28/16 07/28/16 07:00 15:00 23:00 07:00 15:00 23:00 Intake Total 1116 ml 1799 ml 688 ml 617 ml Output Total 400 ml 600 ml Balance 716 ml 1199 ml 688 ml 617 ml Intake Oral 240 ml 1080 ml 360 ml IV Total 876 ml 719 ml 328 ml 617 ml Output Urine Total 400 ml 600 ml # Voids 2 # Bowel Movements 0 2 0 right elbow: packing in place drainage noted packing removed, seropurulent drainage noted elbow range of motion, terminal degrees limited decreased swelling, no erythema cultures are negative Result Diagram: 07/24/16 1531 Assessment and Plan Assessment and Plan 36 year old female s/p incision and drainage right elbow abscess pod4 patient continues to have drainage,packing removed and repacked with 1/4" iodoform packing material dry dressing applied continue with antibiotics based on ID recommendation hand surgery will follow for dressing change tomorrow. Cornel Gray MD Jul 28, 2016 13:17
--- NOTE | 2016-07-28 14:36 | HHI.PR ---
Subjective History of Present Illness R arm pain is little better still hurts but not as bad / pain meds are helping No N/V appetite is ok No fever or chills No cp or SOB offers no other c/o Hospital Day: 4 Review of Systems Constitutional Constitutional: Weakness (10 point review done/ unremarkable.) Vitals/Results Intake & Output 07/27/16 07/27/16 07/28/16 15:00 23:00 07:00 Intake Total 1799 ml 688 ml 617 ml Output Total 600 ml Balance 1199 ml 688 ml 617 ml Intake Oral 1080 ml 360 ml IV Total 719 ml 328 ml 617 ml Output Urine Total 600 ml # Voids 2 # Bowel Movements 2 0 Vital Signs Vital Signs Date Time Temp Pulse Resp B/P Pulse Ox O2 Delivery O2 Flow Rate FiO2 07/28/16 12:00 98.2 87 17 125/79 98 07/28/16 08:00 97.6 91 18 127/87 98 07/28/16 00:00 97.6 86 18 126/72 98 07/27/16 20:00 97.8 91 16 118/74 98 07/27/16 15:53 98.8 89 17 117/77 98 CBC/BMP: 07/24/16 1531 Lab Results Laboratory Tests Test 07/27/16 14:55 Stool C. difficile Toxin (PCR) NEGATIVE Stl C. difficile Toxin PRESUMPTIVE Epiderm 027 NEGATIVE Physical Exam General General Appearance: Well Developed, Well Nourished, No Acute Distress, Comfortable, Anxious Eyes Eye Exam: Pupils Equal, Pupils Reactive, Sclera White, Extraocular Movement Intact Ears & Nose Ears & Nose Exam: Nasal Mucosa [place] Throat Throat Exam: Oral Mucosa [place] & Moist Neck Neck Exam: Neck Supple, Trachea Midline Pulmonary Resp Exam: Clear Bilaterally, Breath Sounds Equal Cardiology CV Exam: Regular, Normal Sinus Rhythm Gastrointestinal/Abdomen GI Exam: Soft, Non-Tender, Bowel Sounds Present Musculoskeletal MS Exam: Normal Gait MS Remarks R arm dressing intact Extremeties Extremities Exam: No Edema, Pedal Pulses Palpable Neurologic Neuro Exam: Alert, Awake, Oriented, Speech Clear, Moving All Extremities Assessment/Plan Assessment/Plan 1) early sepsis (2) Abscess of right arm (3) Cellulitis (4) IV drug abuse (5) Substance use disorder (6) Hx MRSA infection (7) Hx of osteomyelitis Early sepsis, right AC abscess with cellulitis, / IVDU. Recently injected cocaine and heroine. appreciate Surgery input , s/p I&D of abscess, Wound open with packing per documentation. Wrapped securely with irving. Less edema noted wound care -Continue antibiotics: Iv has discontinued and changed to PO -Follow cultures, negative so far. -ID input appreciated monitoring PO antibiotic -Neurovascular checks uneventful -d./w hand surgery , he rec to keep her another day or so here for dressing changes & wound care --Continue Percocet for pain management - d/c IV Dilaudid . IVDU, recent relapse -Patient has been counseled repeatedly , encouraged to seek rehabilitation. UTI -Continue antibiotics, follow cultures History of bipolar, anxiety, patient not on any medication -Monitor, appears stable Heparin for DVT prophylaxis d/w PT d/w Ml Mena MD Jul 28, 2016 14:36
[2016-07-28 16:00] VITALS: BP 135/73; PULSE 86; RESP 17; TEMP 91.5; O2SAT 97
[2016-07-28 20:00] VITALS: BP 122/74; PULSE 84; RESP 16; TEMP 96.4; O2SAT 98
[2016-07-29] VITALS: BP 120/78; PULSE 92; RESP 16; TEMP 96.6; O2SAT 99
[2016-07-29] MEDS: SODIUM CHLOR 0.9% 1000 ML INJ 1,000 ML IV SCH ×2 (00:52→00:54)
[2016-07-29] MEDS: oxyCODONE/ACETAMINOPHEN 10 MG/325 MG TAB PO PRN ×2 (04:00→10:29)
[2016-07-29 08:00] VITALS: BP 112/72; PULSE 85; RESP 20; TEMP 97.9; O2SAT 99
[2016-07-29] MEDS: HEPARIN SODIUM - SQ 10,000 UNITS/ML VIAL SQ SCH (10:28)
[2016-07-29] MEDS: CIPROFLOXACIN 500 MG TAB PO SCH (10:28)
[2016-07-29] MEDS: DOXYCYCLINE HYCLATE 100 MG CAP PO SCH (10:28)
[2016-07-29] MEDS: SODIUM CHLORIDE 0.9% FLUSH 5 ML FLUSH FLUSH SCH (10:29)
--- NOTE | 2016-07-29 12:24 | PD.AMA ---
Against Medical Advice Note Discharge Disposition: Against Medical Advice Pt Condition on Discharge: Stable AMA Statement Patient Helen Madison has decided to leave the hospital against medical advice. This patient has the capacity to refuse care and understands the risks of leaving, including permanent disability and/or , and has had an opportunity to ask questions about her condition. The patient has been informed that she may return for care at any time, and follow up has been arranged/ advised. Security was notified. Police were also notified. Iv still in to staff knowledge. Rajni Arellano Jul 29, 2016 12:24
--- NOTE | 2016-07-29 12:27 | PD.AMA ---
Against Medical Advice Note Diagnosis: (1) Hx MRSA infection (2) Abscess of right arm (3) IV drug abuse (4) Abscess (5) Bipolar disorder (6) Chronic pain (7) Hx of osteomyelitis Discharge Disposition: Against Medical Advice Pt Condition on Discharge: Stable Recommended Treatment Course PO antibiotics, but has no perscription. Wound care rt. arm. Has open wound with packing. Dressing secured am of AMA leaving. AMA Statement Patient Helen Madison has decided to leave the hospital against medical advice. This patient has the capacity to refuse care and understands the risks of leaving, including permanent disability and/or , and has had an opportunity to ask questions about her condition. The patient has been informed that she may return for care at any time, and follow up has been arranged/ advised. Rajni Arellano Jul 29, 2016 12:27
--- NOTE | 2016-08-30 18:03 | HHI.DS ---
Discharge Summary Admission Date Jul 23, 2016 at 00:11 Discharge Date: Jul 29, 2016 Admitting Diagnosis left arm cellulitis/abscess (1) early sepsis (2) Abscess of right arm (3) Cellulitis (4) IV drug abuse (5) Substance use disorder (6) Hx MRSA infection (7) Hx of osteomyelitis Procedures s/p I&D of abscess 07/24/2016 Imaging Last Impressions Upper Extremity Ultrasound 07/22/16 0000 Signed Impressions: Service Date/Time: Friday, July 22, 2016 23:08 - CONCLUSION: Phlegmonous changes, likely developing abscess process in the right arm as described Lalo Nina MD Hospital Course The patient is a 36 year old female with a history of opioid IVDU, MRSA infection with previous I/D of left AC abscess 2015, bipolar, COPD, anxiety. Most recently she underwent DIP joint amputation for osteomyelitis and MRSA infection. Pt. presented with right antecubital and arm, swelling and redness. Stated she injected cocaine and heroin 2 days ago. She had subjective fever, chills, no cp, no sob, no cough, no sputum, no urinary symptoms, no diarrhea. Pt. was noted febrile 100.3, tachycardic HR 103, BP 153/94, RR 20. WBC was normal. Lactic acid 1.3. US of left arm showed developing abscess. Last Impressions Upper Extremity Ultrasound 07/22/16 0000 Signed Impressions: Service Date/Time: Friday, July 22, 2016 23:08 - CONCLUSION: Phlegmonous changes, likely developing abscess process in the right arm as described Lalo Nina MD In the ED, she was given IVF, cultures were obtained and antibiotics were initiated. Bedside I/D was done in the ED, cultures were obtained. UA also positive for UTI. Pt. admitted for further evaluation and treatment. 1) early sepsis (2) Abscess of right arm (3) Cellulitis (4) IV drug abuse (5) Substance use disorder (6) Hx MRSA infection (7) Hx of osteomyelitis During the course of the hospitalization, the following took place: Early sepsis, right AC abscess with cellulitis, / IVDU. Recently injected cocaine and heroine. Put on IVF, antibiotics, ID consultation Cultures were followed Hand surgeon consulted, surgery recommended Underwent I&D of abscess on 07/24/2016. Tolerated well, wound was open with packing. Nursing did dressing changed Arm was elevated. Neurovascular checks done Cultures remained negative Continued Percocet for pain management. IV Dilaudid eventually weaned off. Was changed to PO antibiotics per ID Hx IVDU, recent relapse Patient has been counseled repeatedly , encouraged to seek rehabilitation. Was found with UTI Continue antibiotics, follow cultures History of bipolar, anxiety, patient not on any medication Monitor, appeared stable Heparin for DVT prophylaxis Pt. improved, was getting close to discharge. However, pt. decided to signed out AMA She was informed that decision to leave AMA may result in worsening infection, sepsis, poss. . She verbalized understanding and left. Pt Condition on Discharge: Stable Discharge Instructions Medication Profile: No Active Prescriptions or Reported Meds Tita Verma Aug 30, 2016 18:03
== END 2016-07-29 11:59 | disposition left against medical advice (07) | DRG 580 ==
LOC: NEPC 21:10 → INTOOBSV 07-23 00:11 → NEDA 07-23 00:11 → OBSVTOIN 07-23 00:11 → NEPFCDU 07-23 03:33 → N07B 07-24 21:24 → N07A 07-24 22:30
PROVIDERS: ADMIT Specialist; ATTEND Specialist
PROC: 0H9DXZZ Drainage of Right Lower Arm Skin, External Approach (ICD-10-PCS; principal; 2016-07-22)
PROC: 0J9G0ZZ Drainage of Right Lower Arm Subcutaneous Tissue and Fascia, Open Approach (ICD-10-PCS; 2016-07-24)
DX: L03.113 Cellulitis of right upper limb (principal); N39.0 Urinary tract infection, site not specified; M86.9 Osteomyelitis, unspecified; L02.413 Cutaneous abscess of right upper limb; J44.9 Chronic obstructive pulmonary disease, unspecified; F41.9 Anxiety disorder, unspecified; F10.10 Alcohol abuse, uncomplicated; F11.10 Opioid abuse, uncomplicated; Z86.14 Personal history of Methicillin resistant Staphylococcus aureus infection
CPT/HCPCS: 10061; 76882; 80053; 81001; 83605; 84702; 85025; 86403; 87040; 87070; 87086; 87205; 87493; 96365; 96368; 96375; J0131; J1170; J1200; J1644; J1885; J2020; J2175; J2270; J2405; J2543; J3010; J3370; J7030; J7050